=== PATIENT | female | born 1960 | race Caucasian/White ===

== ENCOUNTER 2019-03-20 10:29 | Emergency (ER) | payer BC ==
[2019-03-20] MEDS ORDERED: Sodium Chloride 0.9% 1,000 ML IV ONE ×2 (10:51→12:25)
[2019-03-20] MEDS ORDERED: Ondansetron 4 MG/2 ML SDV IVPUSH ONE ×2 (10:51→13:23)
[2019-03-20 11:20] LABS: CHLORIDE,CL 99 mmol/L (98-107); SODIUM,NA 134 mmol/L (136-145)
[2019-03-20] MEDS ORDERED: Morphine 2 MG/ML Syringe IVPUSH ONE ×2 (11:23→16:01)
[2019-03-20] MEDS: Sodium Chloride 0.9% 10 ML Syringe FLUSH PRN ×5 (11:29→16:37)
[2019-03-20] MEDS ORDERED: Promethazine 25 MG/ML SDV IM ONE ×2 (11:44→16:15)
[2019-03-20] MEDS ORDERED: Iopamidol 612 MG/ML 100 ML Bottle IVPUSH ONE (13:29)
[2019-03-20] MEDS ORDERED: Diatrizoate Meglumine/Diatrizoate Sodium 37% 30 ML Bottle PO ONE (13:29)
[2019-03-20 13:45] LABS: BARBITURATE SCREEN,URINE NEGATIVE (NEGATIVE); BENZODIAZEPINES SCREEN,URINE NEGATIVE (NEGATIVE); TCA SCREEN,URINE NEGATIVE (NEGATIVE); THC SCREEN,URINE 50 NG/ML NEGATIVE (NEGATIVE)
--- NOTE | 2019-03-20 13:54 | EDM.PDOC ---
ED HPI GENERAL MEDICAL PROBLEM - General Chief Complaint: Abdominal Pain Stated Complaint: abdominal pain, nausea, vomiting Time Seen by Provider: 03/20/19 11:00 Source of Information: Reports: Patient, RN History Limitations: Reports: No Limitations - History of Present Illness INITIAL COMMENTS - FREE TEXT/NARRATIVE: Patient comes to ER with complaint of abdominal pain, emesis/diarrhea that started around 2:30 this morning. Some chills. No specific fever. No specific sick contacts. Has not taken any medication for symptoms. abdominal pain Pain Score (Numeric/FACES): 8 back pain Pain Score (Numeric/FACES): 8 - Related Data Allergies Allergy/AdvReac Type Severity Reaction Status Date / Time No Known Drug Allergies Allergy Other Verified 03/20/19 10:34 Home Meds: Home Meds Aspirin [Halfprin] 81 mg PO DAILY 03/20/19 [History] Fish Oil/[place]-3 Fatty Acids [Fish Oil 1,000 MG] 1 cap PO DAILY 03/20/19 [ History] Levothyroxine 150 mcg PO ACBREAKFAST 03/20/19 [History] Lisinopril [Prinivil] 20 mg PO DAILY 03/20/19 [History] NIFEdipine [Nifedipine ER] 1 tab PO DAILY 03/20/19 [History] Propranolol HCl [Inderal Xl] 1 cap PO DAILY 03/20/19 [History] Past Medical History Cardiovascular History: Reports: Hypertension Psychiatric History: Reports: Addiction (ETOH abuse) Endocrine/Metabolic History: Reports: Diabetes, Type II, Hypothyroidism, Obesity /BMI 30+ - Past Surgical History Female Surgical History: Reports: Hysterectomy, Salpingo-Oophorectomy Social & Family History - Tobacco Use Smoking Status *Q: Current Every Day Smoker Years of Tobacco use: 0 Packs/Tins Daily: 1.5 Used Tobacco, but Quit: No Second Hand Smoke Exposure: Yes - Caffeine Use Caffeine Use: Reports: Coffee - Alcohol Use Days Per Week of Alcohol Use: 7 Number of Drinks Per Day: 8 Total Drinks Per Week: 56 - Recreational Drug Use Recreational Drug Use: No ED ROS GENERAL - Review of Systems Review Of Systems: See Below Constitutional: Reports: Chills, Malaise, Weakness, Decreased Appetite. Denies : Fever, Night Sweats, Diaphoresis HEENT: Denies: Ear Pain, Rhinitis, Sinus Problem, Throat Pain, Vision Change Respiratory: Reports: No Symptoms. Denies: Cough Cardiovascular: Reports: No Symptoms. Denies: Chest Pain GI/Abdominal: Reports: Abdominal Pain (generalized abdominal pain, worse just above umbilicus, radiates to back), Diarrhea, Decreased Appetite, Vomiting, Other (Patient reports that she has itching around rectum and noticed some blood when she was scratching around the area, reports she has hemorrhoids. ). Denies: Black Stool, Difficulty Swallowing, Distension : Reports: No Symptoms. Denies: Frequency, Pain Musculoskeletal: Reports: No Symptoms Skin: Reports: No Symptoms Neurological: Reports: No Symptoms. Denies: Headache Psychiatric: Reports: No Symptoms Hematologic/Lymphatic: Reports: No Symptoms ED EXAM, GENERAL - Physical Exam Exam: See Below Exam Limited By: No Limitations General Appearance: Alert, Moderate Distress, Obese Eye Exam: Bilateral Eye: EOMI, PERRL Ears: Normal External Exam Nose: No: Nasal Deformity, Nasal Swelling, Nasal Drainage Throat/Mouth: Normal Lips, Normal Voice, No Airway Compromise Head: Atraumatic, Normocephalic Neck: Normal Inspection, Supple, Non-Tender, Full Range of Motion Respiratory/Chest: No Respiratory Distress, Lungs Clear, Normal Breath Sounds, No Accessory Muscle Use, Chest Non-Tender Cardiovascular: Normal Peripheral Pulses, Regular Rate, Rhythm, No Murmur GI/Abdominal: Tender (generalized tenderness, worse periumbilically/above umbilicus and RLQ), Abnormal Bowel Sounds (decreased throughout). No: Distended , Guarding, Rigid, Rebound, Mass (Female) Exam: Deferred Rectal (Female) Exam: Deferred Back Exam: No: CVA Tenderness (L), CVA Tenderness (R), Paraspinal Tenderness, Vertebral Tenderness Extremities: Non-Tender, Normal Capillary Refill, Pedal Edema Neurological: Alert, Oriented, Normal Cognition, No Motor/Sensory Deficits Psychiatric: Anxious Skin Exam: Warm, Dry, Intact, Normal Color Course - Vital Signs Last Recorded V/S: Last Vital Signs Temp 36.7 C 03/20/19 10:30 Pulse 74 03/20/19 10:30 Resp 20 03/20/19 10:30 BP 135/62 03/20/19 10:30 Pulse Ox 95 03/20/19 10:30 - Orders/Labs/Meds Orders: Active Orders 24 hr Category Date Time Status Peripheral IV Care [RC] . DIRECTED Care 03/20/19 11:28 Active NPO [Nothing Per Oral Diet] [DIET] Diet 03/20/19 Dinner Ordered Abdomen Pelvis w Cont [CT] Stat Exams 03/20/19 13:23 Ordered Abdomen Series w Chest 1V [CR] Urgent Exams 03/20/19 11:43 Taken OCCULT BLOOD DIAGNOSTIC [OP] Stat Lab 03/20/19 13:54 Ordered Morphine Med 03/20/19 16:01 Once 2 mg IVPUSH ONETIME ONE Sodium Chloride 0.9% [Normal Saline] 500 ml Med 03/20/19 16:15 Ordered IV ASDIRECTED Sodium Chloride 0.9% [Saline Flush] Med 03/20/19 11:28 Active 10 ml FLUSH ASDIRECTED PRN Peripheral IV Insertion Adult [OM.PC] Routine Oth 03/20/19 10:50 Ordered Medication Orders Sodium Chloride (Saline Flush) 10 ml FLUSH ASDIRECTED PRN PRN Reason: Keep Vein Open Last Admin: 03/20/19 14:39 Dose: 10 ml Admin: 03/20/19 13:33 Dose: 10 ml Admin: 03/20/19 12:37 Dose: 10 ml Admin: 03/20/19 11:29 Dose: 10 ml Labs: Laboratory Tests 03/20/19 03/20/19 03/20/19 Range/Units 10:52 10:55 10:55 WBC 12.1 H (4.0-10.2) K/uL RBC 4.04 (3.77-5.09) M/uL Hgb 14.4 (11.7-15.5) g/dL Hct 42.1 (34.0-46.0) % MCV 104.2 H D (84.0-98.0) fL MCH 35.6 H (28.2-33.3) pg MCHC 34.2 (31.7-36.0) g/dL RDW 12.2 (11.2-14.1) % Plt Count 220 (150-350) K/uL Neut % (Auto) 77.1 (45.0-80.0) % Lymph % (Auto) 19.1 (10.0-50.0) % [place] % (Auto) 3.3 (2.0-14.0) % Eos % (Auto) 0.3 (0.0-5.0) % Baso % (Auto) 0.2 (0.0-2.0) % Neut # (Auto) 9.30 H (1.40-7.00) K/uL Lymph # (Auto) 2.31 (0.50-3.50) K/uL [place] # (Auto) 0.40 (0.00-1.00) K/uL Eos # (Auto) 0.04 (0.00-0.50) K/uL Baso # (Auto) 0.02 (0.00-0.20) K/uL Sodium 134 L (136-145) mmol/L Potassium 4.1 (3.5-5.1) mmol/L Chloride 99 (98-107) mmol/L Carbon Dioxide 24.3 (21.0-32.0) mmol/L BUN 6 L (7-18) mg/dL Creatinine 0.54 (0.51-1.17) mg/dL Est Cr Clr Drug Dosing TNP Estimated GFR (MDRD) > 60 mL/min Glucose 181 H (74-106) mg/dL Hemoglobin A1c (4.3-5.7) % Lactic Acid 2.1 H (0.4-2.0) mmol/L Calcium 9.2 (8.5-10.1) mg/dL Magnesium 1.6 L (1.8-2.4) mg/dL Total Bilirubin 0.6 (0.2-1.0) mg/dL AST 31 (15-37) U/L ALT 40 (12-78) U/L Alkaline Phosphatase 141 H (46-116) IU/L Total Protein 8.1 (6.4-8.2) g/dL Albumin 3.6 (3.4-5.0) g/dL Amylase 45 (25-115) U/L Specimen Type Urine Color Urine Appearance Urine pH (5.0-9.0) Ur Specific [place] (1.005-1.030) Urine Protein (NEGATIVE) mg/dL Urine Glucose (UA) (NEGATIVE) mg/dL Urine Ketones (NEGATIVE) mg/dL Urine Occult Blood (NEGATIVE) Urine Nitrite (NEGATIVE) Urine Bilirubin (NEGATIVE) Urine Urobilinogen (0.2-1.0) E.U./dL Ur Leukocyte Esterase (NEGATIVE) Urine RBC /HPF Urine WBC /HPF Ur Epithelial Cells /LPF Urine Bacteria (NONE TO FEW) /HPF Urine Opiates Screen (NEGATIVE) Urine Methadone Screen (NEGATIVE) U Acetaminophen Screen (NEGATIVE) Ur Barbiturates Screen (NEGATIVE) Ur Tricyclics Screen (NEGATIVE) Ur Phencyclidine Scrn (NEGATIVE) Ur Amphetamine Screen (NEGATIVE) U Methamphetamines Scrn (NEGATIVE) U Benzodiazepines Scrn (NEGATIVE) U Cocaine Metab Screen (NEGATIVE) U Marijuana (THC) Screen (NEGATIVE) Ethyl Alcohol (0.000-0.080) g/dL 03/20/19 03/20/19 03/20/19 Range/Units 10:55 12:03 13:30 WBC (4.0-10.2) K/uL RBC (3.77-5.09) M/uL Hgb (11.7-15.5) g/dL Hct (34.0-46.0) % MCV (84.0-98.0) fL MCH (28.2-33.3) pg MCHC (31.7-36.0) g/dL RDW (11.2-14.1) % Plt Count (150-350) K/uL Neut % (Auto) (45.0-80.0) % Lymph % (Auto) (10.0-50.0) % [place] % (Auto) (2.0-14.0) % Eos % (Auto) (0.0-5.0) % Baso % (Auto) (0.0-2.0) % Neut # (Auto) (1.40-7.00) K/uL Lymph # (Auto) (0.50-3.50) K/uL [place] # (Auto) (0.00-1.00) K/uL Eos # (Auto) (0.00-0.50) K/uL Baso # (Auto) (0.00-0.20) K/uL Sodium (136-145) mmol/L Potassium (3.5-5.1) mmol/L Chloride (98-107) mmol/L Carbon Dioxide (21.0-32.0) mmol/L BUN (7-18) mg/dL Creatinine (0.51-1.17) mg/dL Est Cr Clr Drug Dosing Estimated GFR (MDRD) mL/min Glucose (74-106) mg/dL Hemoglobin A1c 5.5 (4.3-5.7) % Lactic Acid (0.4-2.0) mmol/L Calcium (8.5-10.1) mg/dL Magnesium (1.8-2.4) mg/dL Total Bilirubin (0.2-1.0) mg/dL AST (15-37) U/L ALT (12-78) U/L Alkaline Phosphatase (46-116) IU/L Total Protein (6.4-8.2) g/dL Albumin (3.4-5.0) g/dL Amylase (25-115) U/L Specimen Type Urine Color Urine Appearance Urine pH (5.0-9.0) Ur Specific [place] (1.005-1.030) Urine Protein (NEGATIVE) mg/dL Urine Glucose (UA) (NEGATIVE) mg/dL Urine Ketones (NEGATIVE) mg/dL Urine Occult Blood (NEGATIVE) Urine Nitrite (NEGATIVE) Urine Bilirubin (NEGATIVE) Urine Urobilinogen (0.2-1.0) E.U./dL Ur Leukocyte Esterase (NEGATIVE) Urine RBC /HPF Urine WBC /HPF Ur Epithelial Cells /LPF Urine Bacteria (NONE TO FEW) /HPF Urine Opiates Screen Positive H (NEGATIVE) Urine Methadone Screen Negative (NEGATIVE) U Acetaminophen Screen Negative (NEGATIVE) Ur Barbiturates Screen Negative (NEGATIVE) Ur Tricyclics Screen Negative (NEGATIVE) Ur Phencyclidine Scrn Negative (NEGATIVE) Ur Amphetamine Screen Negative (NEGATIVE) U Methamphetamines Scrn Negative (NEGATIVE) U Benzodiazepines Scrn Negative (NEGATIVE) U Cocaine Metab Screen Negative (NEGATIVE) U Marijuana (THC) Screen Negative (NEGATIVE) Ethyl Alcohol 0.000 (0.000-0.080) g/dL 03/20/19 Range/Units 13:30 WBC (4.0-10.2) K/uL RBC (3.77-5.09) M/uL Hgb (11.7-15.5) g/dL Hct (34.0-46.0) % MCV (84.0-98.0) fL MCH (28.2-33.3) pg MCHC (31.7-36.0) g/dL RDW (11.2-14.1) % Plt Count (150-350) K/uL Neut % (Auto) (45.0-80.0) % Lymph % (Auto) (10.0-50.0) % [place] % (Auto) (2.0-14.0) % Eos % (Auto) (0.0-5.0) % Baso % (Auto) (0.0-2.0) % Neut # (Auto) (1.40-7.00) K/uL Lymph # (Auto) (0.50-3.50) K/uL [place] # (Auto) (0.00-1.00) K/uL Eos # (Auto) (0.00-0.50) K/uL Baso # (Auto) (0.00-0.20) K/uL Sodium (136-145) mmol/L Potassium (3.5-5.1) mmol/L Chloride (98-107) mmol/L Carbon Dioxide (21.0-32.0) mmol/L BUN (7-18) mg/dL Creatinine (0.51-1.17) mg/dL Est Cr Clr Drug Dosing Estimated GFR (MDRD) mL/min Glucose (74-106) mg/dL Hemoglobin A1c (4.3-5.7) % Lactic Acid (0.4-2.0) mmol/L Calcium (8.5-10.1) mg/dL Magnesium (1.8-2.4) mg/dL Total Bilirubin (0.2-1.0) mg/dL AST (15-37) U/L ALT (12-78) U/L Alkaline Phosphatase (46-116) IU/L Total Protein (6.4-8.2) g/dL Albumin (3.4-5.0) g/dL Amylase (25-115) U/L Specimen Type Urinvoid Urine Color Dark yellow Urine Appearance Clear Urine pH 7.5 (5.0-9.0) Ur Specific [place] 1.020 (1.005-1.030) Urine Protein Negative (NEGATIVE) mg/dL Urine Glucose (UA) Negative (NEGATIVE) mg/dL Urine Ketones Negative (NEGATIVE) mg/dL Urine Occult Blood Trace-intact H (NEGATIVE) Urine Nitrite Negative (NEGATIVE) Urine Bilirubin Negative (NEGATIVE) Urine Urobilinogen 0.2 (0.2-1.0) E.U./dL Ur Leukocyte Esterase Negative (NEGATIVE) Urine RBC 0-5 /HPF Urine WBC 0-5 /HPF Ur Epithelial Cells Few /LPF Urine Bacteria Not seen (NONE TO FEW) /HPF Urine Opiates Screen (NEGATIVE) Urine Methadone Screen (NEGATIVE) U Acetaminophen Screen (NEGATIVE) Ur Barbiturates Screen (NEGATIVE) Ur Tricyclics Screen (NEGATIVE) Ur Phencyclidine Scrn (NEGATIVE) Ur Amphetamine Screen (NEGATIVE) U Methamphetamines Scrn (NEGATIVE) U Benzodiazepines Scrn (NEGATIVE) U Cocaine Metab Screen (NEGATIVE) U Marijuana (THC) Screen (NEGATIVE) Ethyl Alcohol (0.000-0.080) g/dL Meds: Medications Generic Name Dose Route Start Last Admin Trade Name Freq PRN Reason Stop Dose Admin Sodium Chloride 10 ml 03/20/19 11:28 03/20/19 14:39 Saline Flush FLUSH 10 ml ASDIRECTED PRN Administration Keep Vein Open Discontinued Medications Generic Name Dose Route Start Last Admin Trade Name Freq PRN Reason Stop Dose Admin Diatrizoate Meglum/Diatrizoate Sod 30 ml 03/20/19 13:29 03/20/19 15:20 Gastrografin 37% PO 03/20/19 13:30 30 ml ONETIME ONE Administration Sodium Chloride 1,000 mls @ 999 mls/hr 03/20/19 10:51 03/20/19 10:57 Normal Saline IV 03/20/19 11:51 999 mls/hr .BOLUS ONE Administration Sodium Chloride 1,000 mls @ 999 mls/hr 03/20/19 12:25 03/20/19 12:37 Normal Saline IV 03/20/19 13:25 999 mls/hr .BOLUS ONE Administration Magnesium Sulfate/Dextrose 1 100 mls @ 100 mls/hr 03/20/19 13:47 03/20/19 14: 39 gm/ Premix IV 03/20/19 14:46 100 mls/hr ONETIME ONE Administration Iopamidol 100 ml 03/20/19 13:29 03/20/19 15:20 Isovue-300 (61%) IVPUSH 03/20/19 13:30 100 ml ONETIME ONE Administration Morphine Sulfate 2 mg 03/20/19 11:23 03/20/19 11:27 Morphine IVPUSH 03/20/19 11:24 2 mg ONETIME ONE Administration Ondansetron HCl 4 mg 03/20/19 10:51 03/20/19 11:00 Zofran IVPUSH 03/20/19 10:52 4 mg ONETIME ONE Administration Ondansetron HCl 4 mg 03/20/19 13:23 03/20/19 13:32 Zofran IVPUSH 03/20/19 13:24 4 mg ONETIME ONE Administration Promethazine HCl 25 mg 03/20/19 11:44 03/20/19 11:49 Phenergan IM 03/20/19 11:45 25 mg ONETIME ONE Administration - Re-Assessments/Exams Free Text/Narrative Re-Assessment/Exam: Labs drawn. Patient given pain and anti-nausea meds. IV fluids. Chest/ abdominal xrays did not show obvious acute abnormality. WBC mildly elevated. Lactic acid mildly elevated. Low Mag noted. Elevated blood sugar. A1C requested. Improved pain with MS. No further emesis noted at this time. No bowel movements since arrival. Occult blood screen requested. Given severity of pain, increase in WBC/lactic acid, a CT of abdomen and pelvis requested for further evaluation. 03/20/19 16:04 CT + for uncomplicated appendicitis Patient accepted for transfer to [place] by Patient continues to be much more comfortable s/p Zofran/Phenergan/MS Departure - Departure Time of Disposition: 16:30 Disposition: DC/Tfer to Acute Hospital 02 Condition: Good Clinical Impression: Hypomagnesemia Appendicitis Qualifiers: Appendicitis type: acute appendicitis Acute appendicitis type: unspecified acute appendicitis type Qualified Code(s): K35.80 - Unspecified acute appendicitis - Discharge Information *PRESCRIPTION DRUG MONITORING PROGRAM REVIEWED*: Not Applicable *COPY OF PRESCRIPTION DRUG MONITORING REPORT IN PATIENT KETTY: Not Applicable Referrals: Nelly Montoya PA [Primary Care Provider] - Forms: ED Department Discharge - My Orders Last 24 Hours: My Active Orders 03/20/19 10:50 Peripheral IV Insertion Adult [OM.PC] Routine 03/20/19 11:28 Peripheral IV Care [RC] . DIRECTED Sodium Chloride 0.9% [Saline Flush] 10 ml FLUSH ASDIRECTED PRN 03/20/19 11:43 Abdomen Series w Chest 1V [CR] Urgent 03/20/19 13:23 Abdomen Pelvis w Cont [CT] Stat 03/20/19 13:54 OCCULT BLOOD DIAGNOSTIC [OP] Stat 03/20/19 16:01 Morphine 2 mg IVPUSH ONETIME ONE 03/20/19 16:15 Sodium Chloride 0.9% [Normal Saline] 500 ml IV ASDIRECTED 03/20/19 Dinner NPO [Nothing Per Oral Diet] [DIET] - Assessment/Plan Last 24 Hours: My Active Orders 03/20/19 10:50 Peripheral IV Insertion Adult [OM.PC] Routine 03/20/19 11:28 Peripheral IV Care [RC] . DIRECTED Sodium Chloride 0.9% [Saline Flush] 10 ml FLUSH ASDIRECTED PRN 03/20/19 11:43 Abdomen Series w Chest 1V [CR] Urgent 03/20/19 13:23 Abdomen Pelvis w Cont [CT] Stat 03/20/19 13:54 OCCULT BLOOD DIAGNOSTIC [OP] Stat 03/20/19 16:01 Morphine 2 mg IVPUSH ONETIME ONE 03/20/19 16:15 Sodium Chloride 0.9% [Normal Saline] 500 ml IV ASDIRECTED 03/20/19 Dinner NPO [Nothing Per Oral Diet] [DIET]
[2019-03-20 14:13] LABS: HEMOGLOBIN A1C 5.5 % (4.3-5.7)
[2019-03-20] MEDS ORDERED: Sodium Chloride 0.9% 500 ML IV SCH (16:15)
== END 2019-03-20 16:45 ==
LOC: LL.ED 10:29
DX: K35.80 Unspecified acute appendicitis (principal); E83.42 Hypomagnesemia; I10 Essential (primary) hypertension; E03.9 Hypothyroidism, unspecified; E11.9 Type 2 diabetes mellitus without complications; E66.9 Obesity, unspecified; F17.210 Nicotine dependence, cigarettes, uncomplicated; Z79.82 Long term (current) use of aspirin; Z79.899 Other long term (current) drug therapy; Z79.890 Hormone replacement therapy
CPT/HCPCS: 36415; 74022; 74177; 80053; 80305-QW; 81001; 82150; 83036; 83605; 83735; 85025; 87804; 96361; 96365; 96372; 96375; 96376; 99285-25; G0480; J2270; J2405; J2550; J3475; J7030; Q9963; Q9967

== ENCOUNTER 2020-10-04 21:13 | Observation (INO) | payer BC ==
[~2020-10-04 21:13] MED LIST: Temazepam 15 MG Cap PO PRN
[2020-10-04] MEDS ORDERED: Ondansetron 4 MG/2 ML SDV IVPUSH ONE (21:38)
[2020-10-04] MEDS ORDERED: Famotidine 20 MG/2 ML SDV IVPUSH ONE (21:38)
[2020-10-04] MEDS ORDERED: Pantoprazole 40 MG Vial IVPUSH ONE (21:38)
[2020-10-04] MEDS ORDERED: Lactated Ringers 1,000 ML IV ONE (21:38)
--- NOTE | 2020-10-04 21:38 | EDM.PDOC ---
ED HPI GENERAL MEDICAL PROBLEM - General Chief Complaint: Fever Stated Complaint: HEADACHE, FEVER, N/V/D Time Seen by Provider: 10/04/20 21:30 Source of Information: Reports: Patient, Old Records ([facility] chart/EMR) History Limitations: Reports: No Limitations - History of Present Illness INITIAL COMMENTS - FREE TEXT/NARRATIVE: The patient was brought to the emergency room via private automobile by her [id number] for evaluation of recurrent nausea and emesis, which started at about 6 PM this afternoon after she took 1 dose of Augmentin at about 4:30 PM for sinusitis, /10 sinus headache, and possible right-sided otitis media after a telemedicine visit with her regular provider at [facility] in [place] earlier today. She has had recurrent emesis and dry heaves about every 30 minutes since that time. Her symptoms initially started about 2 days ago with exception of the nausea and emesis, which started this evening as above. She denies any known exposure to infection, food poisoning, etc. No recent history of abdominal pain, heartburn, diarrhea, melena, gross hematochezia, or any food intolerance, including fatty foods, etc., with normal bowel movement earlier today. She denies any gross hematuria, colic, or the UTI symptoms. The patient denies any chest pain/pressure, heart flutter, dizziness, orthostasis, orthopnea, diaphoresis, paresthesias, recent decreased exercise tolerance, or any other anginal-type symptoms. The patient also denies any recent fever, wheezing, dyspnea, etc. with stable nonproductive cough likely secondary to her COPD. Onset: Gradual Onset Date: 10/02/20 Duration: Constant, Getting Worse Location: Reports: Head. Denies: Face, Neck, Chest, Abdomen, Back, Upper Extremity, Left, Upper Extremity, Right, Radiates to Quality: Reports: Same as Previous Episode, Throbbing Severity: Mild Improves with: Reports: None Worsens with: Reports: None Context: Reports: Other (As above). Denies: Sick Contact, Trauma Associated Symptoms: Reports: Cough (As above), Headaches, Nausea/Vomiting. Denies: Confusion, Chest Pain, cough w sputum, Diaphoresis, Fever/Chills (Temperature not measured), Loss of Appetite, Malaise, Rash, Seizure, Shortness of Breath, Syncope, Weakness Treatments SPRINKLER HELPER: Reports: Other Medication(s) (As above) Bilateral Frontal Headache Pain Score (Numeric/FACES): 4 - Related Data Allergies Allergy/AdvReac Type Severity Reaction Status Date / Time No Known Drug Allergies Allergy Other Verified 10/04/20 21:15 Home Meds: Home Meds Aspirin [Halfprin] 81 mg PO DAILY 03/20/19 [History] Fish Oil/[place]-3 Fatty Acids [Fish Oil 1,000 MG] 1 cap PO DAILY 03/20/19 [History] Levothyroxine 150 mcg PO ACBREAKFAST 03/20/19 [History] Propranolol HCl [Inderal Xl] 1 cap PO DAILY 03/20/19 [History] lisinopriL [Prinivil] 40 mg PO DAILY 03/20/19 [History] Cyanocobalamin (Vitamin B-12) [B-12] 500 mcg PO DAILY 10/04/20 [History] Docusate Sodium [Colace] 2 cap PO BID 10/04/20 [History] Famotidine 20 mg PO BID 10/04/20 [History] Fish Oil/[place]-3 Fatty Acids [Fish Oil 1,000 MG] 1 gm PO DAILY 10/04/20 [History] Folic Acid 0.8 mg PO DAILY 10/04/20 [History] Loratadine 10 mg PO DAILY 10/04/20 [History] Meloxicam 15 mg PO DAILY 10/04/20 [History] Past Medical History HEENT History: Reports: Allergic Rhinitis, Impaired Vision, Sinusitis, Other (See Below). Denies: Cataract, Glaucoma, Hard of Hearing, Macular Degeneration, Otitis Media, Retinal Detachment Other HEENT History: Patient wears glasses. Cardiovascular History: Reports: CAD, Hypertension, Other (See Below). Denies: Afib, Aneurysm, Arrhythmia, Blood Clots/VTE/DVT, Cardiomyopathy, Heart Failure, Heart Murmur, High Cholesterol, NE, PVD, Syncope Other Cardiovascular History: Possible coronary artery disease by chest x-ray. The patient does not know her cholesterol status with history of fatty liver as below. Respiratory History: Reports: Bronchitis, Recurrent, COPD, Intubation, Previous, Pneumonia, Recurrent, Pulmonary Fibrosis. Denies: Asthma, Intubation, Difficult, PE, Pneumothorax, Sleep Apnea, TB Gastrointestinal History: Reports: Diverticulosis, Fatty Liver, GERD, Other (See Below). Denies: Bowel Obstruction, Celiac Disease, Cholelithiasis, Chronic Constipation, Chronic Diarrhea, Gastritis, Hepatitis, Inflammatory Bowel Disease, Irritable Bowel Syndrome, Jaundice, Pancreatitis, PUD Other Gastrointestinal History: LFTs elevation either secondary to fatty liver or alcohol use. Genitourinary History: Reports: Renal Calculus, Urinary Incontinence, Other (See Below). Denies: Acute Renal Failure, Chronic Renal Insuffiency, STD, UTI, Recurrent Other Genitourinary History: Left-sided nephrolithiasis with benign right renal cyst by abdominal ultrasound on 11/11/2016. FILES SUPERVISOR History: Reports: Dysfunctional Uterine Bleeding, Fibroids, Therapeutic : 4 Para: 3 LMP (Approximate): Other (See Below) Other FILES SUPERVISOR History: Menopause at about age 44 with hysterectomy as below. Full term without complications during pregnancies or deliveries, although C-sections x3 required secondary to small pelvis. Elective SAB during first trimester. Musculoskeletal History: Reports: Arthritis, Back Pain, Chronic, Osteoarthritis, Other (See Below). 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 Appendicitis on 03/20/2019. Neurological History: Reports: Headaches, Chronic, Other (See Below). Denies: Cerebral Aneurysms, Concussion, CVA, Head Trauma, Migraines, MS, Neuropathy, Peripheral, Parkinson's, Seizure, TIA, Vertigo Other Neuro History: Sinus headaches. Psychiatric History: Reports: Addiction, Anxiety, Depression, Other (See Below). Denies: Abuse, Victim of, ADD, ADHD, Psych Hospitalization(s), Psychosis, PTSD, Suicide Attempt Other Psychiatric History: EtOH abuse. Endocrine/Metabolic History: Reports: Diabetes, Type II, Hypomagnesemia, Hypothyroidism, Obesity/BMI 30+, Other (See Below). Denies: Diabetes, Gestational, Diabetes, Type I, Diabetes Mellitus, Type 3c Other Endocrine/Metabolic History: Hypoalbuminemia. Hyponatremia. Hematologic History: Reports: Anemia, Other (See Below). Denies: Blood Transfusion(s), Iron Deficiency Other Hematologic History: Anemia as a child. Macrocytosis possibly secondary to alcohol abuse. Immunologic History: Denies: AIDS, HIV, SLE Oncologic (Cancer) History: Reports: None. Denies: Basal Cell Carcinoma, Cervix, Colon, Hodgkin's Lymphoma, Leukemia, Malignant Melanoma, Non-Hodgkin's Lymphoma, Ovarian, Squamous Cell Carcinoma, Uterine Dermatologic History: Reports: Eczema. Denies: Psoriasis - Infectious Disease History Infectious Disease History: Reports: Chicken Pox. Denies: C-Difficile, Measles, Meningitis, Mononucleosis, MRSA, Mumps, Novel Coronavirus, Pertussis (Whooping Cough), Rheumatic Fever, Rubella, Scarlet Fever, Shingles, TB, VRE - Past Surgical History Head Surgeries/Procedures: Reports: None HEENT Surgical History: Reports: Oral Surgery, Other (See Below). Denies: Adenoidectomy, Cataract Surgery, Eye Surgery, Laser Surgery, LASIK, Myringotomy w Tube(s), Naso-Sinus Surgery, Tonsillectomy Other HEENT Surgeries/Procedures: Multiple teeth extractions. Cardiovascular Surgical History: Reports: None. Denies: Varicose Respiratory Surgical History: Denies: Thoracentesis GI Surgical History: Reports: Appendectomy, Other (See Below). Denies: Cholecystectomy, Colonoscopy, EGD, Hernia, Abdominal, Hernia, Inguinal, Hernia Repair/Other Other GI Surgeries/Procedures: Appendectomy on 03/20/2019. Female Surgical History: Reports: D&C, Dilitation & Evacuation, Hysterectomy, Salpingo-Oophorectomy, Other (See Below). Denies: Breast Biopsy, Tubal Ligation Other Female Surgeries/Procedures: Complete hysterectomy, including bilateral salpingo-oophorectomy secondary to uterine fibroids at about age 49. Bilateral tubal ligation at age 26. Intentional/elective SAB during first trimester as above. Endocrine Surgical History: Reports: None. Denies: Thyroid Biopsy Neurological Surgical History: Reports: None. Denies: C-Spine, Discectomy, Laminectomy, Lumbar Spine, Sacral Spine, Spinal Fusion, Thoracic Spine, Ve rtebroplasty Musculoskeletal Surgical History: Reports: None. Denies: Arthroscopic Procedure, Carpal Tunnel, Ganglion Cyst, Joint Replacement, ORIF, Shoulder Surgery Oncologic Surgical History: Reports: None Dermatological Surgical History: Reports: None - Past Imaging History Past Imaging History: Reports: CAT Scan (CT of the abdomen and pelvis with contrast positive for appendicitis on 03/20/2019. CT of the chest on 02/27/2010. CT of the head on 09/19/2008.), Mammogram (Last on 01/12/2020.), Ultrasound (Pelvic on 04/30/2017 and 11/04/2016. Complete abdominal ultrasound on 11/11/2016, 01/10/2014 and 10/09/2010.) Social & Family History - Family History HEENT: Reports: None. Denies: Glaucoma, Macular Degeneration, Retinal Detachment Cardiac: Reports: CAD, NE, Other (See Below). Denies: Afib, Aneurysm, Arrhythmia, Blood Clots/VTE/DVT, Cardiomyopathy, Heart Failure, Heart Murmur, Heart Valve Replacement, High Cholesterol, Hypertension, Syncope Other Cardiac Family History: Maternal grandmother with recurrent MIs fatal in her 60s. Respiratory: Reports: Sleep Apnea, Other (See Below). Denies: Asthma, COPD, PE, Pneumothorax Other Respiratory Family Hisory: Daughter with sleep apnea. GI: Reports: None. Denies: Celiac Disease, Cholelithiasis, Colon Polyps, GERD, GI bleed, Inflammatory Bowel Disease, Irritable Bowel Syndrome, PUD : Reports: None. Denies: Renal Calculus, Renal Disease/Insufficiency OBGYN: Reports: None. Denies: Endometriosis, Recurrent Spontaneous Musculoskeletal: Reports: None. Denies: Arthritis, Gout, RA, SLE Neurological: Reports: Alzheimers Disease, Dementia, Other (See Below). Denies: Cerebral Aneurysms, CVA, Migraines, MS, Parkinson's, Seizure, TIA Other Neurological Family History: Daughter with migraine headaches. Maternal grandfather with organic brain syndrome. Psychiatric: Reports: Anxiety, Depression, Psych Hospitalization(s), Suicide Attempt. Denies: Abuse, Victim of, ADD, ADHD, PTSD Other Psychiatric Family History: Father with history of alcohol abuse. Children x3 with anxiety and depression disorder. Daughter with history of suicide attempt requiring hospitalization. Endocrine/Metabolic: Reports: Diabetes, type II, Hypothyroidism, IDDM, Other (See Below). Denies: Diabetes, Type I Other Endocrine/Metabolic Family History: Maternal aunt with AODM. Mother with IDDM and hypothyroidism. Hematologic: Reports: None. Denies: SLE Immunologic: Reports: None. Denies: AIDS, HIV, SLE Dermatologic: Reports: None (Any skin conditions like eczema or psoriasis note). Denies: Eczema, Psoriasis Oncologic: Reports: Breast, Other (See Below) ( GI). Denies: Cervix, Colon, Hodgkin's Lymphoma, Leukemia, Non-Hodgkin's Lymphoma, Ovarian, Skin, Uterine Other Oncologic Family History: Mother with history of breast cancer at about age 60. - Tobacco Use Tobacco Use Status *Q: Current Every Day Tobacco User Tobacco Use Within Last Twelve Months: Cigarettes Years of Tobacco use: 45 Packs/Tins Daily: 1.5 Packs/Tins Daily Comment: Started smoking at age 15 with maximum use of 3 packs/day. Used Tobacco, but Quit: No Smoking Cessation Information Provided To Patient: Yes Second Hand Smoke Exposure: Yes Source of Second Hand Smoke Exposure: Daughter smokes Second Hand Smoke Education Provided: Yes - Caffeine Use Caffeine Use: Reports: Coffee (3 cups/day), Soda (Occasional). Denies: Energy Drinks, Tea - Alcohol Use Alcohol Use History: Yes Days Per Week of Alcohol Use: 7 Number of Drinks Per Day: 8 Number of Drinks Per Day Comment: Usually wine coolers. Total Drinks Per Week: 56 Date of Last Drink: 10/04/20 Alcohol Use in Last Twelve Months: Yes Alcohol Use Frequency: Binges - Recreational Drug Use Recreational Drug Use: Yes Drug Use in Last 12 Months: No Recreational Drug Type: Reports: Marijuana/Hashish (Experimental in high school). Denies: Amphetamines (Speed), Cocaine, Heroin, Inhalants (Glues, Solvents, Aerosols), LSD (Acid), Morphine, Oxycodone - Living Situation & Occupation Living situation: Reports: (1980, 3 children), with Family (, 1 daughter) Occupation: Other (Farm ) ED ROS GENERAL - Review of Systems Review Of Systems: Comprehensive ROS is negative, except as noted in HPI. ED EXAM, GI/ABD - Physical Exam Exam: See Below Exam Limited By: No Limitations General Appearance: Alert, WD/WN, No Apparent Distress, Anxious (Mild) Eyes: Bilateral: Normal Appearance (No vertigo or nystagmus. Patient is wearing glasses.), EOMI Ears: Normal External Exam, Normal Canal, Hearing Grossly Normal. No: Normal TMs (Mild injection of the right TM) Nose: Normal Inspection, Normal Mucosa, No Blood Throat/Mouth: Normal Inspection, Normal Lips, Normal Teeth (Multiple missing teeth with no evidence of infection), Normal Gums, Normal Oropharynx, Normal Voice, No Airway Compromise. No: Dysphagia, Inflammation, Perioral Cyanosis Head: Atraumatic, Normocephalic. No: Facial Swelling, Facial Tenderness, Sinus Tenderness Neck: Normal Inspection, Supple, Non-Tender, Full Range of Motion. No: Carotid Bruit, Lymphadenopathy (L), Lymphadenopathy (R), Thyromegaly Respiratory/Chest: No Respiratory Distress, Lungs Clear, Normal Breath Sounds, No Accessory Muscle Use, Chest Non-Tender. No: Pleural Rub, Retractions Cardiovascular: Normal Peripheral Pulses, Regular Rate, Rhythm, No Gallop, No JVD, No Murmur, No Rub. No: No Edema (Dependent edema as below), Gallop/S3, Gallop/S4, Friction Rub GI/Abdominal Exam: Normal Bowel Sounds, Soft, Non-Tender, No Organomegaly, No Distention, No Abnormal Bruit, No Mass, Other (Obese). No: Guarding (Female) Exam: Deferred Rectal (Female) Exam: Deferred Back Exam: Normal Inspection, Full Range of Motion. No: CVA Tenderness (L), CVA Tenderness (R), Muscle Spasm Extremities: Normal Range of Motion, Non-Tender, Normal Capillary Refill, Pedal Edema (+1 bilateral pedal/pretibial edema). No: Nuzhat's Sign Neurological: Alert, Oriented, CN II-XII Intact, Normal Cognition, Normal Gait, Normal Reflexes (Negative Babinski's), No Motor/Sensory Deficits Psychiatric: Anxious (Mild), Depressed Mood (Mild) Skin Exam: Warm, Dry, Intact, Normal Color, No Rash, Tattoo(s) (Multiple). No: Diaphoretic, Wound/Incision Course - Vital Signs Last Recorded V/S: Last Vital Signs Temp 37.4 C 10/04/20 22:30 Pulse 78 10/04/20 22:30 Resp 14 10/04/20 22:30 BP 144/76 H 10/04/20 22:30 Pulse Ox 98 10/04/20 22:30 Vital Signs - 24 hr 10/04/20 10/04/20 21:19 22:30 Temperature [ 38.1 C 37.4 C Temporal] Pulse, 80 78 Peripheral [ Left Pulse Oximetry] Respiratory 14 14 Rate Blood Pressure 165/100 H 144/76 H [Left Upper Arm ] O2 Sat by Pulse 98 98 Oximetry - Orders/Labs/Meds Orders: Active Orders 24 hr Category Date Time Status Peripheral IV Care [RC] . DIRECTED Care 10/04/20 21:38 Active Nothing Per Oral Diet [DIET] Diet 10/04/20 Breakfast Active Abdomen Series w Chest 1V [CR] Stat Exams 10/04/20 21:38 Stop Req Abdomen Series w Chest 1V [CR] Stat Exams 10/04/20 21:38 Taken CULTURE BLOOD [BC] Stat Lab 10/04/20 22:15 Received CULTURE BLOOD [BC] Stat Lab 10/04/20 22:35 Received CULTURE URINE [RM] Stat Lab 10/04/20 21:38 Ordered H PYLORI STOOL ANTIGEN [MREF] Urgent Lab 10/04/20 21:38 Ordered OCCULT BLOOD DIAGNOSTIC [OP] Stat Lab 10/04/20 21:38 Ordered Sodium Chloride 0.9% [Saline Flush] Med 10/04/20 21:38 Active 10 ml FLUSH ASDIRECTED PRN Blood Culture x2 Reflex Set [OM.PC] Urgent Oth 10/04/20 21:38 Ordered Isolation [COMM] Routine Oth 10/04/20 21:40 Active Obtain Past Medical Record [OM.PC] Urgent Oth 10/04/20 21:38 Active Peripheral IV Insertion Adult [OM.PC] Stat Oth 10/04/20 21:38 Ordered Resuscitation Status Stat Resus Stat 10/04/20 21:38 Ordered Medication Orders Sodium Chloride (Sodium Chloride 0.9% 10 Ml Syringe) 10 ml FLUSH ASDIRECTED PRN PRN Reason: Keep Vein Open Last Admin: 10/04/20 22:26 Dose: 10 ml Documented by: RAMONA Labs: Laboratory Tests 10/04/20 10/04/20 10/04/20 Range/Units 21:30 21:30 22:15 WBC (4.0-10.2) K/uL RBC (3.77-5.09) M/uL Hgb (11.7-15.5) g/dL Hct (34.0-46.0) % MCV (84.0-98.0) fL MCH (28.2-33.3) pg MCHC (31.7-36.0) g/dL RDW (11.2-14.1) % Plt Count (150-350) K/uL Neut % (Auto) (45.0-80.0) % Lymph % (Auto) (10.0-50.0) % [place] % (Auto) (2.0-14.0) % Eos % (Auto) (0.0-5.0) % Baso % (Auto) (0.0-2.0) % Neut # (Auto) (1.40-7.00) K/uL Lymph # (Auto) (0.50-3.50) K/uL [place] # (Auto) (0.00-1.00) K/uL Eos # (Auto) (0.00-0.50) K/uL Baso # (Auto) (0.00-0.20) K/uL PT (9.5-12.0) SEC INR Sodium (136-145) mmol/L Potassium (3.5-5.1) mmol/L Chloride (98-107) mmol/L Carbon Dioxide (21.0-32.0) mmol/L BUN (7-18) mg/dL Creatinine (0.51-1.17) mg/dL Est Cr Clr Drug Dosing mL/min Estimated GFR (MDRD) mL/min Glucose (70-99) mg/dL Lactic Acid (0.4-2.0) mmol/L Uric Acid (2.6-7.2) mg/dL Calcium (8.5-10.1) mg/dL Magnesium (1.8-2.4) mg/dL Total Bilirubin (0.2-1.0) mg/dL AST (15-37) U/L ALT (12-78) U/L Alkaline Phosphatase (46-116) IU/L Total Protein (6.4-8.2) g/dL Albumin (3.4-5.0) g/dL Amylase 35 (25-115) U/L Lipase (73-393) U/L Specimen Type Urine Color Urine Appearance Urine pH (5.0-9.0) Ur Specific [place] (1.005-1.030) Urine Protein (NEGATIVE) mg/dL Urine Glucose (UA) (NEGATIVE) mg/dL Urine Ketones (NEGATIVE) mg/dL Urine Occult Blood (NEGATIVE) Urine Nitrite (NEGATIVE) Urine Bilirubin (NEGATIVE) Urine Urobilinogen (0.2-1.0) E.U./dL Ur Leukocyte Esterase (NEGATIVE) Urine RBC /HPF Urine WBC /HPF Ur Epithelial Cells /LPF Urine Bacteria (NONE TO FEW) /HPF Urine Opiates Screen (NEGATIVE) Ur Buprenorphine Scrn (NEGATIVE) Ur Oxycodone Screen (NEGATIVE) Ur EDDP (Meth Metab) (NEGATIVE) Ur Barbiturates Screen (NEGATIVE) Ur Tricyclics Screen (NEGATIVE) Ur Amphetamine Screen (NEGATIVE) U Methamphetamines Scrn (NEGATIVE) Urine MDMA Screen (NEGATIVE) U Benzodiazepines Scrn (NEGATIVE) U Cocaine Metab Screen (NEGATIVE) U Marijuana (THC) Screen (NEGATIVE) Ethyl Alcohol (0.000-0.080) g/dL SARS-CoV-2 RNA (JOZEF) Negative (NEGATIVE) SARS-CoV-2 Ag (Rapid) Negative (NEGATIVE) 10/04/20 10/04/20 10/04/20 Range/Units 22:15 22:15 22:15 WBC 13.0 H (4.0-10.2) K/uL RBC 4.26 (3.77-5.09) M/uL Hgb 15.2 (11.7-15.5) g/dL Hct 43.7 (34.0-46.0) % MCV 102.6 H (84.0-98.0) fL MCH 35.7 H (28.2-33.3) pg MCHC 34.8 (31.7-36.0) g/dL RDW 12.4 (11.2-14.1) % Plt Count 213 (150-350) K/uL Neut % (Auto) 80.2 H (45.0-80.0) % Lymph % (Auto) 11.4 (10.0-50.0) % [place] % (Auto) 6.9 (2.0-14.0) % Eos % (Auto) 1.3 (0.0-5.0) % Baso % (Auto) 0.2 (0.0-2.0) % Neut # (Auto) 10.43 H (1.40-7.00) K/uL Lymph # (Auto) 1.48 (0.50-3.50) K/uL [place] # (Auto) 0.89 (0.00-1.00) K/uL Eos # (Auto) 0.17 (0.00-0.50) K/uL Baso # (Auto) 0.02 (0.00-0.20) K/uL PT 9.9 (9.5-12.0) SEC INR 1.0 Sodium 133 L (136-145) mmol/L Potassium 4.3 (3.5-5.1) mmol/L Chloride 97 L (98-107) mmol/L Carbon Dioxide 25.0 (21.0-32.0) mmol/L BUN 7 (7-18) mg/dL Creatinine 0.68 (0.51-1.17) mg/dL Est Cr Clr Drug Dosing 78.18 mL/min Estimated GFR (MDRD) > 60 mL/min Glucose 211 H (70-99) mg/dL Lactic Acid (0.4-2.0) mmol/L Uric Acid 4.0 (2.6-7.2) mg/dL Calcium 9.4 (8.5-10.1) mg/dL Magnesium 1.8 (1.8-2.4) mg/dL Total Bilirubin 0.8 (0.2-1.0) mg/dL AST 22 (15-37) U/L ALT 34 (12-78) U/L Alkaline Phosphatase 142 H (46-116) IU/L Total Protein 8.3 H (6.4-8.2) g/dL Albumin 3.7 (3.4-5.0) g/dL Amylase (25-115) U/L Lipase 100 (73-393) U/L Specimen Type Urine Color Urine Appearance Urine pH (5.0-9.0) Ur Specific [place] (1.005-1.030) Urine Protein (NEGATIVE) mg/dL Urine Glucose (UA) (NEGATIVE) mg/dL Urine Ketones (NEGATIVE) mg/dL Urine Occult Blood (NEGATIVE) Urine Nitrite (NEGATIVE) Urine Bilirubin (NEGATIVE) Urine Urobilinogen (0.2-1.0) E.U./dL Ur Leukocyte Esterase (NEGATIVE) Urine RBC /HPF Urine WBC /HPF Ur Epithelial Cells /LPF Urine Bacteria (NONE TO FEW) /HPF Urine Opiates Screen (NEGATIVE) Ur Buprenorphine Scrn (NEGATIVE) Ur Oxycodone Screen (NEGATIVE) Ur EDDP (Meth Metab) (NEGATIVE) Ur Barbiturates Screen (NEGATIVE) Ur Tricyclics Screen (NEGATIVE) Ur Amphetamine Screen (NEGATIVE) U Methamphetamines Scrn (NEGATIVE) Urine MDMA Screen (NEGATIVE) U Benzodiazepines Scrn (NEGATIVE) U Cocaine Metab Screen (NEGATIVE) U Marijuana (THC) Screen (NEGATIVE) Ethyl Alcohol 0.003 (0.000-0.080) g/dL SARS-CoV-2 RNA (JOZEF) (NEGATIVE) SARS-CoV-2 Ag (Rapid) (NEGATIVE) 10/04/20 10/04/20 10/04/20 Range/Units 22:15 22:40 22:40 WBC (4.0-10.2) K/uL RBC (3.77-5.09) M/uL Hgb (11.7-15.5) g/dL Hct (34.0-46.0) % MCV (84.0-98.0) fL MCH (28.2-33.3) pg MCHC (31.7-36.0) g/dL RDW (11.2-14.1) % Plt Count (150-350) K/uL Neut % (Auto) (45.0-80.0) % Lymph % (Auto) (10.0-50.0) % [place] % (Auto) (2.0-14.0) % Eos % (Auto) (0.0-5.0) % Baso % (Auto) (0.0-2.0) % Neut # (Auto) (1.40-7.00) K/uL Lymph # (Auto) (0.50-3.50) K/uL [place] # (Auto) (0.00-1.00) K/uL Eos # (Auto) (0.00-0.50) K/uL Baso # (Auto) (0.00-0.20) K/uL PT (9.5-12.0) SEC INR Sodium (136-145) mmol/L Potassium (3.5-5.1) mmol/L Chloride (98-107) mmol/L Carbon Dioxide (21.0-32.0) mmol/L BUN (7-18) mg/dL Creatinine (0.51-1.17) mg/dL Est Cr Clr Drug Dosing mL/min Estimated GFR (MDRD) mL/min Glucose (70-99) mg/dL Lactic Acid 1.1 (0.4-2.0) mmol/L Uric Acid (2.6-7.2) mg/dL Calcium (8.5-10.1) mg/dL Magnesium (1.8-2.4) mg/dL Total Bilirubin (0.2-1.0) mg/dL AST (15-37) U/L ALT (12-78) U/L Alkaline Phosphatase (46-116) IU/L Total Protein (6.4-8.2) g/dL Albumin (3.4-5.0) g/dL Amylase (25-115) U/L Lipase (73-393) U/L Specimen Type Urinvoid Urine Color Dark yellow Urine Appearance Slightly cloudy Urine pH 8.5 (5.0-9.0) Ur Specific [place] 1.025 (1.005-1.030) Urine Protein 100 H (NEGATIVE) mg/dL Urine Glucose (UA) Negative (NEGATIVE) mg/dL Urine Ketones Negative (NEGATIVE) mg/dL Urine Occult Blood Trace-lysed H (NEGATIVE) Urine Nitrite Negative (NEGATIVE) Urine Bilirubin Negative (NEGATIVE) Urine Urobilinogen 1.0 (0.2-1.0) E.U./dL Ur Leukocyte Esterase Negative (NEGATIVE) Urine RBC 20-30 H /HPF Urine WBC 0-5 /HPF Ur Epithelial Cells Many H /LPF Urine Bacteria Moderate H (NONE TO FEW) /HPF Urine Opiates Screen Negative (NEGATIVE) Ur Buprenorphine Scrn Negative (NEGATIVE) Ur Oxycodone Screen Negative (NEGATIVE) Ur EDDP (Meth Metab) Negative (NEGATIVE) Ur Barbiturates Screen Negative (NEGATIVE) Ur Tricyclics Screen Negative (NEGATIVE) Ur Amphetamine Screen Negative (NEGATIVE) U Methamphetamines Scrn Negative (NEGATIVE) Urine MDMA Screen Negative (NEGATIVE) U Benzodiazepines Scrn Negative (NEGATIVE) U Cocaine Metab Screen Negative (NEGATIVE) U Marijuana (THC) Screen Negative (NEGATIVE) Ethyl Alcohol (0.000-0.080) g/dL SARS-CoV-2 RNA (JOZEF) (NEGATIVE) SARS-CoV-2 Ag (Rapid) (NEGATIVE) Blood cultures x2 were collected. Urine specimen not set up for culture and sensitivity secondary to stool contamination with repeat specimen to be collected for culture and sensitivity. Microbiology 10/04/20 21:30 Influenza Type A Antigen Screen - Final Nasal, Unspecified NEGATIVE INFLUENZA A VIRUS AG REFERENCE RANGE: NEGATIVE Influenza Type B Antigen Screen - Final NEGATIVE INFLUENZA B VIRUS AG REFERENCE RANGE: NEGATIVE Meds: Medications Generic Name Dose Route Start Last Admin Trade Name Freq PRN Reason Stop Dose Admin Sodium Chloride 10 ml 10/04/20 21:38 10/04/20 22:26 Sodium Chloride 0.9% 10 Ml Syringe FLUSH 10 ml ASDIRECTED PRN Administration Keep Vein Open Discontinued Medications Generic Name Dose Route Start Last Admin Trade Name Nilam PRN Reason Stop Dose Admin Ceftriaxone Sodium 2 gm 10/04/20 21:43 10/04/20 22:26 Ceftriaxone 2 Gm Vial IVPUSH 10/04/20 21:44 2 gm ONETIME ONE Administration Famotidine 40 mg 10/04/20 21:38 10/04/20 22:15 Famotidine 20 Mg/2 Ml Sdv IVPUSH 10/04/20 21:39 40 mg ONETIME ONE Administration Lactated Ringer's 1,000 mls @ 999 mls/hr 10/04/20 21:38 10/04/20 22:45 Ringers, Lactated IV 10/04/20 22:38 999 mls/hr .BOLUS ONE Administration Ondansetron HCl 4 mg 10/04/20 21:38 10/04/20 22:10 Ondansetron 4 Mg/2 Ml Sdv IVPUSH 10/04/20 21:39 4 mg ONETIME ONE Administration Ondansetron HCl 4 mg 10/04/20 22:02 10/04/20 22:20 Ondansetron 4 Mg Tab.Dis PO 10/04/20 22:03 Not Given ONETIME ONE Pantoprazole Sodium 40 mg 10/04/20 21:38 10/04/20 22:12 Pantoprazole 40 Mg Vial IVPUSH 10/04/20 21:39 40 mg ONETIME ONE Administration - Radiology Interpretation Free Text/Narrative:: Acute abdominal x-ray shows evidence of moderate COPD and pulmonary fibrosis with no pulmonary infiltrates, pneumothorax, cardiomegaly, CHF, etc. Surgical clips noted in the right lower quadrant consistent with previous appendectomy. No free air, fluid levels, ileus, obstruction, etc. with nonspecific bowel gaseous pattern noted. Departure - Departure Time of Disposition: 23:00 Disposition: Refer to Observation Clinical Impression: Peptic reflux disease, Mixed anxiety depressive disorder, Hyponatremia Nausea and vomiting Qualifiers: Vomiting type: unspecified Vomiting Intractability: non-intractable Qualified Code(s): R11.2 - Nausea with vomiting, unspecified Sinusitis Qualifiers: Sinusitis location: frontal Chronicity: acute Recurrence: non-recurrent Qualified Code(s): J01.10 - Acute frontal sinusitis, unspecified Otitis media Qualifiers: Otitis media type: unspecified Chronicity: acute Qualified Code(s): H66.90 - Otitis media, unspecified, unspecified ear COPD (chronic obstructive pulmonary disease) Qualifiers: COPD type: emphysema Emphysema type: panlobular Qualified Code(s): J43.1 - Panlobular emphysema Hypertension Qualifiers: Hypertension type: essential hypertension Qualified Code(s): I10 - Essential (primary) hypertension Diabetes mellitus Qualifiers: Diabetes mellitus type: type 2 Diabetes mellitus fci insulin use: without fci use Diabetes mellitus complication status: without complication Qualified Code(s): E11.9 - Type 2 diabetes mellitus without complications UTI (urinary tract infection) Qualifiers: Urinary tract infection type: acute cystitis Hematuria presence: without hematuria Qualified Code(s): N30.00 - Acute cystitis without hematuria - Discharge Information *PRESCRIPTION DRUG MONITORING PROGRAM REVIEWED*: Not Applicable *COPY OF PRESCRIPTION DRUG MONITORING REPORT IN PATIENT KETTY: Not Applicable Sepsis Event Note (ED) - Evaluation Sepsis Screening Result: No Definite Risk - Focused Exam Vital Signs: Vital Signs Temp Pulse Resp BP Pulse Ox 10/04/20 22:30 37.4 C 78 14 144/76 H 98 10/04/20 21:19 38.1 C 80 14 165/100 H 98 - Problem List & Annotations (1) Nausea and vomiting SNOMED Code(s): 39579865 Code(s): R11.2 - NAUSEA WITH VOMITING, UNSPECIFIED Status: Acute Priority: High Current Visit: Yes Onset Date: 10/04/20 Annotation/Comment:: Various therapeutic options were discussed with the patient. Nausea somewhat improved prior to placement in observation status although several episodes of emesis prior to arrival and also during initial part of the emergency room visit. Qualifiers: Vomiting type: unspecified Vomiting Intractability: non-intractable Qualified Code(s): R11.2 - Nausea with vomiting, unspecified (2) Peptic reflux disease SNOMED Code(s): 371265540 Code(s): K21.9 - GASTRO-ESOPHAGEAL REFLUX DISEASE WITHOUT ESOPHAGITIS Status: Chronic Priority: Medium Current Visit: Yes Annotation/Comment:: High-dose IV Pepcid and IV Protonix given his GI prophylaxis. (3) Otitis media SNOMED Code(s): 32033901 Code(s): H66.90 - OTITIS MEDIA, UNSPECIFIED, UNSPECIFIED EAR Status: Acute Priority: Medium Current Visit: Yes Onset Date: ~10/04/20 Annotation/Comment:: Note previous Augmentin tablet lost by emesis as above with no history of medication intolerance, etc.. IV Rocephin initiated in the emergency room as above. Qualifiers: Otitis media type: unspecified Chronicity: acute Qualified Code(s): H66.90 - Otitis media, unspecified, unspecified ear (4) Sinusitis SNOMED Code(s): 01984069 Code(s): J32.9 - CHRONIC SINUSITIS, UNSPECIFIED Status: Acute Priority: Medium Current Visit: Yes Onset Date: ~10/04/20 Annotation/Comment:: Possible beginning concomitant sinusitis with her otitis media. IV Rocephin ini tiated as above. Qualifiers: Sinusitis location: frontal Chronicity: acute Recurrence: non-recurrent Qualified Code(s): J01.10 - Acute frontal sinusitis, unspecified (5) COPD (chronic obstructive pulmonary disease) SNOMED Code(s): 42835524 Code(s): J44.9 - CHRONIC OBSTRUCTIVE PULMONARY DISEASE, UNSPECIFIED Status: Chronic Priority: Medium Current Visit: Yes Annotation/Comment:: No evidence of significant pneumonia or bronchitis by clinical exam and chest x- ray. IV Rocephin started in the emergency room as above. Qualifiers: COPD type: emphysema Emphysema type: panlobular Qualified Code(s): J43.1 - Panlobular emphysema (6) Diabetes mellitus SNOMED Code(s): 12649592 Code(s): E11.9 - TYPE 2 DIABETES MELLITUS WITHOUT COMPLICATIONS Status: Chronic Priority: Medium Current Visit: Yes Annotation/Comment:: Elevated random glucose level. Glycosylated hemoglobin in the a.m. Qualifiers: Diabetes mellitus type: type 2 Diabetes mellitus long term care phlebotomist insulin use: without fci use Diabetes mellitus complication status: without complication Qualified Code(s): E11.9 - Type 2 diabetes mellitus without complications (7) Hypertension SNOMED Code(s): 69096138 Code(s): I10 - ESSENTIAL (PRIMARY) HYPERTENSION Status: Chronic Priority: Medium Current Visit: Yes Annotation/Comment:: Blood pressures are somewhat elevated in the emergency room. Continue to observe closely during this hospitalization. Qualifiers: Hypertension type: essential hypertension Qualified Code(s): I10 - Essential (primary) hypertension (8) Hyponatremia SNOMED Code(s): 51022136 Code(s): E87.1 - HYPO-OSMOLALITY AND HYPONATREMIA Status: Acute Priority: Medium Current Visit: Yes Onset Date: 10/04/20 Annotation/Comment:: Lactated Ringer's 1 L IV bolus given in the emergency room. (9) Mixed anxiety depressive disorder SNOMED Code(s): 177727146 Code(s): F41.8 - OTHER SPECIFIED ANXIETY DISORDERS Status: Chronic Priority: Medium Current Visit: Yes Annotation/Comment:: Stable by history with history of alcohol abuse. Normal alcohol level today. (10) UTI (urinary tract infection) SNOMED Code(s): 89867081 Code(s): N39.0 - URINARY TRACT INFECTION, SITE NOT SPECIFIED Status: Acute Priority: High Current Visit: Yes Onset Date: 10/04/20 Annotation/Comment:: Possible concomitant UTI with mild leukocytosis, however normal lactic acid level no evidence of sepsis. Urine specimen was contaminated with stool with urine to be recollected for culture and sensitivity. IV Rocephin therapy initiated as above. Qualifiers: Urinary tract infection type: acute cystitis Hematuria presence: without hematuria Qualified Code(s): N30.00 - Acute cystitis without hematuria - Problem List Review Problem List Initiated/Reviewed/Updated: Yes - My Orders Last 24 Hours: My Active Orders 10/04/20 Breakfast Nothing Per Oral Diet [DIET] 10/04/20 21:38 Peripheral IV Care [RC] . DIRECTED Abdomen Series w Chest 1V [CR] Stat Abdomen Series w Chest 1V [CR] Stat CULTURE URINE [RM] Stat H PYLORI STOOL ANTIGEN [MREF] Urgent OCCULT BLOOD DIAGNOSTIC [OP] Stat Sodium Chloride 0.9% [Saline Flush] 10 ml FLUSH ASDIRECTED PRN Blood Culture x2 Reflex Set [OM.PC] Urgent Obtain Past Medical Record [OM.PC] Urgent Peripheral IV Insertion Adult [OM.PC] Stat Resuscitation Status Stat 10/04/20 21:40 Isolation [COMM] Routine 10/04/20 22:15 CULTURE BLOOD [BC] Stat 10/04/20 22:35 CULTURE BLOOD [BC] Stat - Assessment/Plan Admission H&P: Please use this note as an admission H&P Last 24 Hours: My Active Orders 10/04/20 Breakfast Nothing Per Oral Diet [DIET] 10/04/20 21:38 Peripheral IV Care [RC] . DIRECTED Abdomen Series w Chest 1V [CR] Stat Abdomen Series w Chest 1V [CR] Stat CULTURE URINE [RM] Stat H PYLORI STOOL ANTIGEN [MREF] Urgent OCCULT BLOOD DIAGNOSTIC [OP] Stat Sodium Chloride 0.9% [Saline Flush] 10 ml FLUSH ASDIRECTED PRN Blood Culture x2 Reflex Set [OM.PC] Urgent Obtain Past Medical Record [OM.PC] Urgent Peripheral IV Insertion Adult [OM.PC] Stat Resuscitation Status Stat 10/04/20 21:40 Isolation [COMM] Routine 10/04/20 22:15 CULTURE BLOOD [BC] Stat 10/04/20 22:35 CULTURE BLOOD [BC] Stat Assessment:: As above Plan: As above. Extensive precautions were given to the patient, who is in agreement with the treatment plan. The patient's condition is stable enough for observation status and general supervision.
[2020-10-04] MEDS ORDERED: cefTRIAXone 2 GM Vial IVPUSH ONE (21:43)
[2020-10-04] MEDS ORDERED: Ondansetron 4 MG Tab.DIS PO ONE (22:02)
[2020-10-04] MEDS: Sodium Chloride 0.9% 10 ML Syringe FLUSH PRN (22:26)
[2020-10-04 22:41] LABS: CHLORIDE,CL 97 mmol/L (98-107); SODIUM,NA 133 mmol/L (136-145)
[2020-10-04 23:06] LABS: BARBITURATE SCREEN,URINE NEGATIVE (NEGATIVE); BENZODIAZEPINES SCREEN,URINE NEGATIVE (NEGATIVE); EDDP,URINE SCREEN NEGATIVE (NEGATIVE); TCA SCREEN,URINE NEGATIVE (NEGATIVE); THC SCREEN,URINE 50 NG/ML NEGATIVE (NEGATIVE)
[2020-10-04] MEDS ORDERED: Ondansetron 4 MG/2 ML SDV IVPUSH PRN (23:18)
[2020-10-04] MEDS ORDERED: Lactated Ringers 1,000 ML IV SCH (23:30)
[2020-10-05 08:05] LABS: HEMOGLOBIN A1C 6.7 % (4.3-5.7)
[2020-10-05] MEDS: Acetaminophen 325 MG Tab PO PRN ×3 (08:30→23:48)
[2020-10-05] MEDS: Propranolol 60 MG Cap.ER PO SCH (08:30)
[2020-10-05] MEDS: Loratadine 10 MG Tab PO SCH (08:33)
[2020-10-05] MEDS: Docusate Sodium 100 MG Cap PO SCH ×2 (08:33→17:42)
[2020-10-05] MEDS: Aspirin 81 MG Tab.EC PO SCH (08:38)
[2020-10-05] MEDS: Levothyroxine 150 MCG Tab PO SCH (08:39)
[2020-10-05] MEDS: Lisinopril 20 MG Tab PO SCH (08:39)
[2020-10-05] MEDS: Sodium Chloride 0.9% 10 ML Syringe FLUSH SCH ×2 (08:39→20:09)
[2020-10-05] MEDS: Pantoprazole 40 MG Vial IVPUSH SCH ×2 (08:40→20:09)
[2020-10-05] MEDS: Cyanocobalamin (Vitamin B12) 250 MCG Tab PO SCH (08:51)
[2020-10-05 08:52] LABS: CHLORIDE,CL 100 mmol/L (98-107); SODIUM,NA 135 mmol/L (136-145)
--- NOTE | 2020-10-05 09:50 | PCM.PN ---
- General Info Date of Service: 10/05/20 Admission Dx/Problem (Free Text): 1. Nausea and vomiting 2. Right-sided otitis media 3. Sinusitis Functional Status: Reports: Pain Controlled, Tolerating Diet, Ambulating, Urinating, Incentive Spirometry. Denies: New Symptoms Pain Score: 3 - Review of Systems General: Reports: Fever. Denies: Weakness, Fatigue, Malaise, Chills, Night Sweats, Appetite (Good) HEENT: Reports: Ear Pain (Right-sided), Glasses, Headaches (Sinus headaches), Sinus Congestion. Denies: Sore Throat, Rhinitis, Visual Changes Pulmonary: Reports: Cough. Denies: Shortness of Breath, Pleuritic Chest Pain, Sputum, Hemoptysis, Wheezing Cardiovascular: Reports: Edema (Dependent). Denies: Chest Pain, Palpitations, Dyspnea on Exertion, Orthopnea, Lightheadedness Gastrointestinal: Reports: Nausea (Much improved), Other (No bowel movement since admission). Denies: Abdominal Pain, Constipation, Decreased Appetite, Diarrhea, Difficulty Swallowing, Hematochezia, Melena, Vomiting Genitourinary: Reports: No Symptoms. Denies: Dysuria, Frequency, Burning, Pain, Urgency, Incontinence, Retention, Flank Pain Musculoskeletal: Reports: No Symptoms. Denies: Neck Pain, Shoulder Pain, Arm Pain, Back Pain, Leg Pain Skin: Reports: No Symptoms. Denies: Diaphoresis, Bruising Neurological: Reports: Headache (Sinus). Denies: Confusion, Weakness Psychiatric: Reports: No Symptoms. Denies: Confusion, Depression, Agitation, Hallucinations, Homicidal Ideation - Patient Data Vitals - Most Recent: Last Vital Signs Temp 37.1 C 10/05/20 03:30 Pulse 76 10/05/20 03:30 Resp 12 10/05/20 03:30 BP 118/55 L 10/05/20 08:39 Pulse Ox 99 10/05/20 03:30 Vital Signs - 24 hr 10/04/20 10/04/20 10/04/20 21:19 22:30 23:18 Temperature [ Axillary] Temperature [ 38.1 C 37.4 C 37.0 C Temporal] Pulse, 80 78 74 Peripheral [ Left Pulse Oximetry] Respiratory 14 14 12 Rate Blood Pressure Blood Pressure 165/100 H 144/76 H 121/69 [Left Upper Arm ] O2 Sat by Pulse 98 98 97 Oximetry 10/05/20 10/05/20 03:30 08:39 Temperature [ 37.1 C Axillary] Temperature [ Temporal] Pulse, 76 Peripheral [ Left Pulse Oximetry] Respiratory 12 Rate Blood Pressure 118/55 L Blood Pressure 136/60 [Left Upper Arm ] O2 Sat by Pulse 99 Oximetry Weight - Most Recent: 122.425 kg I&O - Last 24 Hours: Intake & Output 10/04/20 10/05/20 10/05/20 22:59 06:59 14:59 Intake Total 1100 Output Total 700 Balance 400 Imaging Impressions - Last 24 Hours: None Lab Results Last 24 Hours: Laboratory Results - last 24 hr 10/04/20 10/04/20 10/04/20 Range/Units 21:30 21:30 22:15 WBC (4.0-10.2) K/uL RBC (3.77-5.09) M/uL Hgb (11.7-15.5) g/dL Hct (34.0-46.0) % MCV (84.0-98.0) fL MCH (28.2-33.3) pg MCHC (31.7-36.0) g/dL RDW (11.2-14.1) % Plt Count (150-350) K/uL Neut % (Auto) (45.0-80.0) % Lymph % (Auto) (10.0-50.0) % [place] % (Auto) (2.0-14.0) % Eos % (Auto) (0.0-5.0) % Baso % (Auto) (0.0-2.0) % Neut # (Auto) (1.40-7.00) K/uL Lymph # (Auto) (0.50-3.50) K/uL [place] # (Auto) (0.00-1.00) K/uL Eos # (Auto) (0.00-0.50) K/uL Baso # (Auto) (0.00-0.20) K/uL PT (9.5-12.0) SEC INR Sodium (136-145) mmol/L Potassium (3.5-5.1) mmol/L Chloride (98-107) mmol/L Carbon Dioxide (21.0-32.0) mmol/L BUN (7-18) mg/dL Creatinine (0.51-1.17) mg/dL Est Cr Clr Drug Dosing mL/min Estimated GFR (MDRD) mL/min Glucose (70-99) mg/dL Hemoglobin A1c (4.3-5.7) % Lactic Acid (0.4-2.0) mmol/L Uric Acid (2.6-7.2) mg/dL Calcium (8.5-10.1) mg/dL Magnesium (1.8-2.4) mg/dL Total Bilirubin (0.2-1.0) mg/dL AST (15-37) U/L ALT (12-78) U/L Alkaline Phosphatase (46-116) IU/L Total Protein (6.4-8.2) g/dL Albumin (3.4-5.0) g/dL Triglycerides (30-150) mg/dL Cholesterol (100-200) mg/dL LDL Cholesterol, Calc (0-100) mg/dL HDL Cholesterol (40-60) mg/dL Amylase 35 (25-115) U/L Lipase (73-393) U/L Vitamin B12 (193-986) pg/mL Folate (8.6-58.9) ng/mL Specimen Type Urine Color Urine Appearance Urine pH (5.0-9.0) Ur Specific [place] (1.005-1.030) Urine Protein (NEGATIVE) mg/dL Urine Glucose (UA) (NEGATIVE) mg/dL Urine Ketones (NEGATIVE) mg/dL Urine Occult Blood (NEGATIVE) Urine Nitrite (NEGATIVE) Urine Bilirubin (NEGATIVE) Urine Urobilinogen (0.2-1.0) E.U./dL Ur Leukocyte Esterase (NEGATIVE) Urine RBC /HPF Urine WBC /HPF Ur Epithelial Cells /LPF Urine Bacteria (NONE TO FEW) /HPF Urine Opiates Screen (NEGATIVE) Ur Buprenorphine Scrn (NEGATIVE) Ur Oxycodone Screen (NEGATIVE) Ur EDDP (Meth Metab) (NEGATIVE) Ur Barbiturates Screen (NEGATIVE) Ur Tricyclics Screen (NEGATIVE) Ur Amphetamine Screen (NEGATIVE) U Methamphetamines Scrn (NEGATIVE) Urine MDMA Screen (NEGATIVE) U Benzodiazepines Scrn (NEGATIVE) U Cocaine Metab Screen (NEGATIVE) U Marijuana (THC) Screen (NEGATIVE) Ethyl Alcohol (0.000-0.080) g/dL SARS-CoV-2 RNA (JOZEF) Negative (NEGATIVE) SARS-CoV-2 Ag (Rapid) Negative (NEGATIVE) 10/04/20 10/04/20 10/04/20 Range/Units 22:15 22:15 22:15 WBC 13.0 H (4.0-10.2) K/uL RBC 4.26 (3.77-5.09) M/uL Hgb 15.2 (11.7-15.5) g/dL Hct 43.7 (34.0-46.0) % MCV 102.6 H (84.0-98.0) fL MCH 35.7 H (28.2-33.3) pg MCHC 34.8 (31.7-36.0) g/dL RDW 12.4 (11.2-14.1) % Plt Count 213 (150-350) K/uL Neut % (Auto) 80.2 H (45.0-80.0) % Lymph % (Auto) 11.4 (10.0-50.0) % [place] % (Auto) 6.9 (2.0-14.0) % Eos % (Auto) 1.3 (0.0-5.0) % Baso % (Auto) 0.2 (0.0-2.0) % Neut # (Auto) 10.43 H (1.40-7.00) K/uL Lymph # (Auto) 1.48 (0.50-3.50) K/uL [place] # (Auto) 0.89 (0.00-1.00) K/uL Eos # (Auto) 0.17 (0.00-0.50) K/uL Baso # (Auto) 0.02 (0.00-0.20) K/uL PT 9.9 (9.5-12.0) SEC INR 1.0 Sodium 133 L (136-145) mmol/L Potassium 4.3 (3.5-5.1) mmol/L Chloride 97 L (98-107) mmol/L Carbon Dioxide 25.0 (21.0-32.0) mmol/L BUN 7 (7-18) mg/dL Creatinine 0.68 (0.51-1.17) mg/dL Est Cr Clr Drug Dosing 78.18 mL/min Estimated GFR (MDRD) > 60 mL/min Glucose 211 H (70-99) mg/dL Hemoglobin A1c (4.3-5.7) % Lactic Acid (0.4-2.0) mmol/L Uric Acid 4.0 (2.6-7.2) mg/dL Calcium 9.4 (8.5-10.1) mg/dL Magnesium 1.8 (1.8-2.4) mg/dL Total Bilirubin 0.8 (0.2-1.0) mg/dL AST 22 (15-37) U/L ALT 34 (12-78) U/L Alkaline Phosphatase 142 H (46-116) IU/L Total Protein 8.3 H (6.4-8.2) g/dL Albumin 3.7 (3.4-5.0) g/dL Triglycerides (30-150) mg/dL Cholesterol (100-200) mg/dL LDL Cholesterol, Calc (0-100) mg/dL HDL Cholesterol (40-60) mg/dL Amylase (25-115) U/L Lipase 100 (73-393) U/L Vitamin B12 (193-986) pg/mL Folate (8.6-58.9) ng/mL Specimen Type Urine Color Urine Appearance Urine pH (5.0-9.0) Ur Specific [place] (1.005-1.030) Urine Protein (NEGATIVE) mg/dL Urine Glucose (UA) (NEGATIVE) mg/dL Urine Ketones (NEGATIVE) mg/dL Urine Occult Blood (NEGATIVE) Urine Nitrite (NEGATIVE) Urine Bilirubin (NEGATIVE) Urine Urobilinogen (0.2-1.0) E.U./dL Ur Leukocyte Esterase (NEGATIVE) Urine RBC /HPF Urine WBC /HPF Ur Epithelial Cells /LPF Urine Bacteria (NONE TO FEW) /HPF Urine Opiates Screen (NEGATIVE) Ur Buprenorphine Scrn (NEGATIVE) Ur Oxycodone Screen (NEGATIVE) Ur EDDP (Meth Metab) (NEGATIVE) Ur Barbiturates Screen (NEGATIVE) Ur Tricyclics Screen (NEGATIVE) Ur Amphetamine Screen (NEGATIVE) U Methamphetamines Scrn (NEGATIVE) Urine MDMA Screen (NEGATIVE) U Benzodiazepines Scrn (NEGATIVE) U Cocaine Metab Screen (NEGATIVE) U Marijuana (THC) Screen (NEGATIVE) Ethyl Alcohol 0.003 (0.000-0.080) g/dL SARS-CoV-2 RNA (JOZEF) (NEGATIVE) SARS-CoV-2 Ag (Rapid) (NEGATIVE) 10/04/20 10/04/20 10/04/20 Range/Units 22:15 22:40 22:40 WBC (4.0-10.2) K/uL RBC (3.77-5.09) M/uL Hgb (11.7-15.5) g/dL Hct (34.0-46.0) % MCV (84.0-98.0) fL MCH (28.2-33.3) pg MCHC (31.7-36.0) g/dL RDW (11.2-14.1) % Plt Count (150-350) K/uL Neut % (Auto) (45.0-80.0) % Lymph % (Auto) (10.0-50.0) % [place] % (Auto) (2.0-14.0) % Eos % (Auto) (0.0-5.0) % Baso % (Auto) (0.0-2.0) % Neut # (Auto) (1.40-7.00) K/uL Lymph # (Auto) (0.50-3.50) K/uL [place] # (Auto) (0.00-1.00) K/uL Eos # (Auto) (0.00-0.50) K/uL Baso # (Auto) (0.00-0.20) K/uL PT (9.5-12.0) SEC INR Sodium (136-145) mmol/L Potassium (3.5-5.1) mmol/L Chloride (98-107) mmol/L Carbon Dioxide (21.0-32.0) mmol/L BUN (7-18) mg/dL Creatinine (0.51-1.17) mg/dL Est Cr Clr Drug Dosing mL/min Estimated GFR (MDRD) mL/min Glucose (70-99) mg/dL Hemoglobin A1c (4.3-5.7) % Lactic Acid 1.1 (0.4-2.0) mmol/L Uric Acid (2.6-7.2) mg/dL Calcium (8.5-10.1) mg/dL Magnesium (1.8-2.4) mg/dL Total Bilirubin (0.2-1.0) mg/dL AST (15-37) U/L ALT (12-78) U/L Alkaline Phosphatase (46-116) IU/L Total Protein (6.4-8.2) g/dL Albumin (3.4-5.0) g/dL Triglycerides (30-150) mg/dL Cholesterol (100-200) mg/dL LDL Cholesterol, Calc (0-100) mg/dL HDL Cholesterol (40-60) mg/dL Amylase (25-115) U/L Lipase (73-393) U/L Vitamin B12 (193-986) pg/mL Folate (8.6-58.9) ng/mL Specimen Type Urinvoid Urine Color Dark yellow Urine Appearance Slightly cloudy Urine pH 8.5 (5.0-9.0) Ur Specific [place] 1.025 (1.005-1.030) Urine Protein 100 H (NEGATIVE) mg/dL Urine Glucose (UA) Negative (NEGATIVE) mg/dL Urine Ketones Negative (NEGATIVE) mg/dL Urine Occult Blood Trace-lysed H (NEGATIVE) Urine Nitrite Negative (NEGATIVE) Urine Bilirubin Negative (NEGATIVE) Urine Urobilinogen 1.0 (0.2-1.0) E.U./dL Ur Leukocyte Esterase Negative (NEGATIVE) Urine RBC 20-30 H /HPF Urine WBC 0-5 /HPF Ur Epithelial Cells Many H /LPF Urine Bacteria Moderate H (NONE TO FEW) /HPF Urine Opiates Screen Negative (NEGATIVE) Ur Buprenorphine Scrn Negative (NEGATIVE) Ur Oxycodone Screen Negative (NEGATIVE) Ur EDDP (Meth Metab) Negative (NEGATIVE) Ur Barbiturates Screen Negative (NEGATIVE) Ur Tricyclics Screen Negative (NEGATIVE) Ur Amphetamine Screen Negative (NEGATIVE) U Methamphetamines Scrn Negative (NEGATIVE) Urine MDMA Screen Negative (NEGATIVE) U Benzodiazepines Scrn Negative (NEGATIVE) U Cocaine Metab Screen Negative (NEGATIVE) U Marijuana (THC) Screen Negative (NEGATIVE) Ethyl Alcohol (0.000-0.080) g/dL SARS-CoV-2 RNA (JOZEF) (NEGATIVE) SARS-CoV-2 Ag (Rapid) (NEGATIVE) 10/05/20 10/05/20 10/05/20 Range/Units 07:35 07:35 07:35 WBC 8.0 (4.0-10.2) K/uL RBC 3.79 (3.77-5.09) M/uL Hgb 13.4 D (11.7-15.5) g/dL Hct 39.6 (34.0-46.0) % MCV 104.5 H (84.0-98.0) fL MCH 35.4 H (28.2-33.3) pg MCHC 33.8 (31.7-36.0) g/dL RDW 12.4 (11.2-14.1) % Plt Count 192 (150-350) K/uL Neut % (Auto) 69.8 (45.0-80.0) % Lymph % (Auto) 21.1 (10.0-50.0) % [place] % (Auto) 4.9 (2.0-14.0) % Eos % (Auto) 4.1 (0.0-5.0) % Baso % (Auto) 0.1 (0.0-2.0) % Neut # (Auto) 5.59 (1.40-7.00) K/uL Lymph # (Auto) 1.69 (0.50-3.50) K/uL [place] # (Auto) 0.39 (0.00-1.00) K/uL Eos # (Auto) 0.33 (0.00-0.50) K/uL Baso # (Auto) 0.01 (0.00-0.20) K/uL PT (9.5-12.0) SEC INR Sodium 135 L (136-145) mmol/L Potassium 3.9 (3.5-5.1) mmol/L Chloride 100 (98-107) mmol/L Carbon Dioxide 27.4 (21.0-32.0) mmol/L BUN 9 (7-18) mg/dL Creatinine 0.75 (0.51-1.17) mg/dL Est Cr Clr Drug Dosing 70.88 mL/min Estimated GFR (MDRD) > 60 mL/min Glucose 152 H (70-99) mg/dL Hemoglobin A1c 6.7 H (4.3-5.7) % Lactic Acid (0.4-2.0) mmol/L Uric Acid (2.6-7.2) mg/dL Calcium 8.4 L (8.5-10.1) mg/dL Magnesium (1.8-2.4) mg/dL Total Bilirubin 0.7 (0.2-1.0) mg/dL AST 23 (15-37) U/L ALT 30 (12-78) U/L Alkaline Phosphatase 110 (46-116) IU/L Total Protein 6.8 (6.4-8.2) g/dL Albumin 2.9 L (3.4-5.0) g/dL Triglycerides 111 (30-150) mg/dL Cholesterol 168 (100-200) mg/dL LDL Cholesterol, Calc 112 H (0-100) mg/dL HDL Cholesterol 34 L (40-60) mg/dL Amylase (25-115) U/L Lipase (73-393) U/L Vitamin B12 825 (193-986) pg/mL Folate 20.1 (8.6-58.9) ng/mL Specimen Type Urine Color Urine Appearance Urine pH (5.0-9.0) Ur Specific [place] (1.005-1.030) Urine Protein (NEGATIVE) mg/dL Urine Glucose (UA) (NEGATIVE) mg/dL Urine Ketones (NEGATIVE) mg/dL Urine Occult Blood (NEGATIVE) Urine Nitrite (NEGATIVE) Urine Bilirubin (NEGATIVE) Urine Urobilinogen (0.2-1.0) E.U./dL Ur Leukocyte Esterase (NEGATIVE) Urine RBC /HPF Urine WBC /HPF Ur Epithelial Cells /LPF Urine Bacteria (NONE TO FEW) /HPF Urine Opiates Screen (NEGATIVE) Ur Buprenorphine Scrn (NEGATIVE) Ur Oxycodone Screen (NEGATIVE) Ur EDDP (Meth Metab) (NEGATIVE) Ur Barbiturates Screen (NEGATIVE) Ur Tricyclics Screen (NEGATIVE) Ur Amphetamine Screen (NEGATIVE) U Methamphetamines Scrn (NEGATIVE) Urine MDMA Screen (NEGATIVE) U Benzodiazepines Scrn (NEGATIVE) U Cocaine Metab Screen (NEGATIVE) U Marijuana (THC) Screen (NEGATIVE) Ethyl Alcohol (0.000-0.080) g/dL SARS-CoV-2 RNA (JOZEF) (NEGATIVE) SARS-CoV-2 Ag (Rapid) (NEGATIVE) Thiamine level pending. Randal Results Last 24 Hours: Microbiology 10/04/20 21:30 Influenza Type A Antigen Screen - Final Nasal, Unspecified NEGATIVE INFLUENZA A VIRUS AG REFERENCE RANGE: NEGATIVE Influenza Type B Antigen Screen - Final NEGATIVE INFLUENZA B VIRUS AG REFERENCE RANGE: NEGATIVE Med Orders - Current: Current Medications Acetaminophen (Acetaminophen 325 Mg Tab) 650 mg PO Q4H PRN PRN Reason: Pain Last Admin: 10/05/20 08:30 Dose: 650 mg Documented by: Aspirin (Aspirin 81 Mg Tab.Ec) 81 mg PO DAILY [facility] Last Admin: 10/05/20 08:38 Dose: 81 mg Documented by: Cyanocobalamin (Cyanocobalamin (Vitamin B12) 250 Mcg Tab) 500 mcg PO DAILY [facility] Last Admin: 10/05/20 08:51 Dose: 500 mcg Documented by: Docusate Sodium (Docusate Sodium 100 Mg Cap) 200 mg PO BID [facility] Last Admin: 10/05/20 08:33 Dose: 200 mg Documented by: Famotidine (Famotidine 20 Mg/2 Ml Sdv) 20 mg IVPUSH Q12H [facility] Folic Acid (Folic Acid 1 Mg Tab) 1 mg PO DAILY [facility] Ceftriaxone Sodium 1 gm/ (Sodium Chloride) 100 mls @ 200 mls/hr IV Q12H [facility] Lactated Ringer's (Ringers, Lactated) 1,000 mls @ 100 mls/hr IV ASDIRECTED [facility] Last Admin: 10/05/20 00:13 Dose: 100 mls/hr Documented by: Levothyroxine Sodium (Levothyroxine 150 Mcg Tab) 150 mcg PO ACBREAKFAST [facility] Last Admin: 10/05/20 08:39 Dose: 150 mcg Documented by: Lisinopril (Lisinopril 20 Mg Tab) 40 mg PO DAILY [facility] Last Admin: 10/05/20 08:39 Dose: 40 mg Documented by: Loratadine (Loratadine 10 Mg Tab) 10 mg PO DAILY [facility] Last Admin: 10/05/20 08:33 Dose: 10 mg Documented by: Meloxicam (Meloxicam 15 Mg Tab) 15 mg PO DAILY [facility] Last Admin: 10/05/20 08:30 Dose: 15 mg Documented by: Ondansetron HCl (Ondansetron 4 Mg/2 Ml Sdv) 4 mg IVPUSH Q6H PRN PRN Reason: Nausea/Vomiting Last Admin: 10/05/20 03:28 Dose: 4 mg Documented by: Pantoprazole Sodium (Pantoprazole 40 Mg Vial) 40 mg IVPUSH Q12H [facility] Last Admin: 10/05/20 08:40 Dose: 40 mg Documented by: Propranolol HCl (Propranolol 60 Mg Cap.Er) 120 mg PO DAILY [facility] Last Admin: 10/05/20 08:30 Dose: 120 mg Documented by: Sodium Chloride (Sodium Chloride 0.9% 10 Ml Syringe) 10 ml FLUSH ASDIRECTED PRN PRN Reason: Keep Vein Open Last Admin: 10/04/20 22:26 Dose: 10 ml Documented by: Sodium Chloride (Sodium Chloride 0.9% 10 Ml Syringe) 10 ml FLUSH Q12HR [facility] Last Admin: 10/05/20 08:39 Dose: 10 ml Documented by: Temazepam (Temazepam 15 Mg Cap) 15 mg PO DAILY@2000 PRN PRN Reason: Insomnia Discontinued Medications Ceftriaxone Sodium (Ceftriaxone 2 Gm Vial) 2 gm IVPUSH ONETIME ONE Stop: 10/04/20 21:44 Last Admin: 10/04/20 22:26 Dose: 2 gm Documented by: Famotidine (Famotidine 20 Mg/2 Ml Sdv) 40 mg IVPUSH ONETIME ONE Stop: 10/04/20 21:39 Last Admin: 10/04/20 22:15 Dose: 40 mg Documented by: Lactated Ringer's (Ringers, Lactated) 1,000 mls @ 999 mls/hr IV .BOLUS ONE Stop: 10/04/20 22:38 Last Admin: 10/04/20 22:45 Dose: 999 mls/hr Documented by: Non-Formulary Medication (Folic Acid [Folic Acid]) 0.8 mg PO DAILY [facility] Ondansetron HCl (Ondansetron 4 Mg/2 Ml Sdv) 4 mg IVPUSH ONETIME ONE Stop: 10/04/20 21:39 Last Admin: 10/04/20 22:10 Dose: 4 mg Documented by: Ondansetron HCl (Ondansetron 4 Mg Tab.Dis) 4 mg PO ONETIME ONE Stop: 10/04/20 22:03 Last Admin: 10/04/20 22:20 Dose: Not Given Documented by: Pantoprazole Sodium (Pantoprazole 40 Mg Vial) 40 mg IVPUSH ONETIME ONE Stop: 10/04/20 21:39 Last Admin: 10/04/20 22:12 Dose: 40 mg Documented by: - Exam Quality Assessment: DVT Prophylaxis. No: Supplemental Oxygen, Central Line/PICC, Urine Catheter, Skin Breakdown General: Alert, Oriented, Cooperative, No Acute Distress HEENT: Pupils Equal, Pupils Reactive, EOMI, Mucous Membr. Moist/[place], Other (Stable mild sinus pressure without palpation pain in her right sided TM injection). No: Scleral Icterus Neck: Supple, Trachea Midline, No JVD, No Thyromegaly, +2 Carotid Pulse wo Bruit . No: Lymphadenopathy Lungs: Clear to Auscultation, Normal Respiratory Effort. No: Rub, Wheezing Cardiovascular: Regular Rate, Regular Rhythm, No Murmurs. No: Gallops, Rubs GI/Abdominal Exam: Normal Bowel Sounds, Soft, Non-Tender, No Organomegaly, No Distention, No Abnormal Bruit, No Mass, Other (Obese). No: Guarding (Female) Exam: Deferred Back Exam: Normal Inspection, Full Range of Motion. No: CVA Tenderness (L), CVA Tenderness (R), Muscle Spasm Extremities: Normal Range of Motion, Non-Tender, Normal Capillary Refill, Pedal Edema (+1 bilateral pedal/pretibial edema). No: Nuzhat's Sign Peripheral Pulses: 2+: Radial (L), Radial (R), Dorsalis Pedis (L), Dorsalis Pedis (R) Skin: Warm, Dry, Intact. No: Ecchymosis Neurological: No New Focal Deficit Psy/Mental Status: Alert, Normal Affect, Normal Mood. No: Agitated, Hallucinations, Withdrawal Symptoms - Patient Data Lab Results Last 24 hrs: Laboratory Results - last 24 hr 10/04/20 10/04/20 10/04/20 Range/Units 21:30 21:30 22:15 WBC (4.0-10.2) K/uL RBC (3.77-5.09) M/uL Hgb (11.7-15.5) g/dL Hct (34.0-46.0) % MCV (84.0-98.0) fL MCH (28.2-33.3) pg MCHC (31.7-36.0) g/dL RDW (11.2-14.1) % Plt Count (150-350) K/uL Neut % (Auto) (45.0-80.0) % Lymph % (Auto) (10.0-50.0) % [place] % (Auto) (2.0-14.0) % Eos % (Auto) (0.0-5.0) % Baso % (Auto) (0.0-2.0) % Neut # (Auto) (1.40-7.00) K/uL Lymph # (Auto) (0.50-3.50) K/uL [place] # (Auto) (0.00-1.00) K/uL Eos # (Auto) (0.00-0.50) K/uL Baso # (Auto) (0.00-0.20) K/uL PT (9.5-12.0) SEC INR Sodium (136-145) mmol/L Potassium (3.5-5.1) mmol/L Chloride (98-107) mmol/L Carbon Dioxide (21.0-32.0) mmol/L BUN (7-18) mg/dL Creatinine (0.51-1.17) mg/dL Est Cr Clr Drug Dosing mL/min Estimated GFR (MDRD) mL/min Glucose (70-99) mg/dL Hemoglobin A1c (4.3-5.7) % Lactic Acid (0.4-2.0) mmol/L Uric Acid (2.6-7.2) mg/dL Calcium (8.5-10.1) mg/dL Magnesium (1.8-2.4) mg/dL Total Bilirubin (0.2-1.0) mg/dL AST (15-37) U/L ALT (12-78) U/L Alkaline Phosphatase (46-116) IU/L Total Protein (6.4-8.2) g/dL Albumin (3.4-5.0) g/dL Triglycerides (30-150) mg/dL Cholesterol (100-200) mg/dL LDL Cholesterol, Calc (0-100) mg/dL HDL Cholesterol (40-60) mg/dL Amylase 35 (25-115) U/L Lipase (73-393) U/L Vitamin B12 (193-986) pg/mL Folate (8.6-58.9) ng/mL Specimen Type Urine Color Urine Appearance Urine pH (5.0-9.0) Ur Specific [place] (1.005-1.030) Urine Protein (NEGATIVE) mg/dL Urine Glucose (UA) (NEGATIVE) mg/dL Urine Ketones (NEGATIVE) mg/dL Urine Occult Blood (NEGATIVE) Urine Nitrite (NEGATIVE) Urine Bilirubin (NEGATIVE) Urine Urobilinogen (0.2-1.0) E.U./dL Ur Leukocyte Esterase (NEGATIVE) Urine RBC /HPF Urine WBC /HPF Ur Epithelial Cells /LPF Urine Bacteria (NONE TO FEW) /HPF Urine Opiates Screen (NEGATIVE) Ur Buprenorphine Scrn (NEGATIVE) Ur Oxycodone Screen (NEGATIVE) Ur EDDP (Meth Metab) (NEGATIVE) Ur Barbiturates Screen (NEGATIVE) Ur Tricyclics Screen (NEGATIVE) Ur Amphetamine Screen (NEGATIVE) U Methamphetamines Scrn (NEGATIVE) Urine MDMA Screen (NEGATIVE) U Benzodiazepines Scrn (NEGATIVE) U Cocaine Metab Screen (NEGATIVE) U Marijuana (THC) Screen (NEGATIVE) Ethyl Alcohol (0.000-0.080) g/dL SARS-CoV-2 RNA (JOZEF) Negative (NEGATIVE) SARS-CoV-2 Ag (Rapid) Negative (NEGATIVE) 10/04/20 10/04/20 10/04/20 Range/Units 22:15 22:15 22:15 WBC 13.0 H (4.0-10.2) K/uL RBC 4.26 (3.77-5.09) M/uL Hgb 15.2 (11.7-15.5) g/dL Hct 43.7 (34.0-46.0) % MCV 102.6 H (84.0-98.0) fL MCH 35.7 H (28.2-33.3) pg MCHC 34.8 (31.7-36.0) g/dL RDW 12.4 (11.2-14.1) % Plt Count 213 (150-350) K/uL Neut % (Auto) 80.2 H (45.0-80.0) % Lymph % (Auto) 11.4 (10.0-50.0) % [place] % (Auto) 6.9 (2.0-14.0) % Eos % (Auto) 1.3 (0.0-5.0) % Baso % (Auto) 0.2 (0.0-2.0) % Neut # (Auto) 10.43 H (1.40-7.00) K/uL Lymph # (Auto) 1.48 (0.50-3.50) K/uL [place] # (Auto) 0.89 (0.00-1.00) K/uL Eos # (Auto) 0.17 (0.00-0.50) K/uL Baso # (Auto) 0.02 (0.00-0.20) K/uL PT 9.9 (9.5-12.0) SEC INR 1.0 Sodium 133 L (136-145) mmol/L Potassium 4.3 (3.5-5.1) mmol/L Chloride 97 L (98-107) mmol/L Carbon Dioxide 25.0 (21.0-32.0) mmol/L BUN 7 (7-18) mg/dL Creatinine 0.68 (0.51-1.17) mg/dL Est Cr Clr Drug Dosing 78.18 mL/min Estimated GFR (MDRD) > 60 mL/min Glucose 211 H (70-99) mg/dL Hemoglobin A1c (4.3-5.7) % Lactic Acid (0.4-2.0) mmol/L Uric Acid 4.0 (2.6-7.2) mg/dL Calcium 9.4 (8.5-10.1) mg/dL Magnesium 1.8 (1.8-2.4) mg/dL Total Bilirubin 0.8 (0.2-1.0) mg/dL AST 22 (15-37) U/L ALT 34 (12-78) U/L Alkaline Phosphatase 142 H (46-116) IU/L Total Protein 8.3 H (6.4-8.2) g/dL Albumin 3.7 (3.4-5.0) g/dL Triglycerides (30-150) mg/dL Cholesterol (100-200) mg/dL LDL Cholesterol, Calc (0-100) mg/dL HDL Cholesterol (40-60) mg/dL Amylase (25-115) U/L Lipase 100 (73-393) U/L Vitamin B12 (193-986) pg/mL Folate (8.6-58.9) ng/mL Specimen Type Urine Color Urine Appearance Urine pH (5.0-9.0) Ur Specific [place] (1.005-1.030) Urine Protein (NEGATIVE) mg/dL Urine Glucose (UA) (NEGATIVE) mg/dL Urine Ketones (NEGATIVE) mg/dL Urine Occult Blood (NEGATIVE) Urine Nitrite (NEGATIVE) Urine Bilirubin (NEGATIVE) Urine Urobilinogen (0.2-1.0) E.U./dL Ur Leukocyte Esterase (NEGATIVE) Urine RBC /HPF Urine WBC /HPF Ur Epithelial Cells /LPF Urine Bacteria (NONE TO FEW) /HPF Urine Opiates Screen (NEGATIVE) Ur Buprenorphine Scrn (NEGATIVE) Ur Oxycodone Screen (NEGATIVE) Ur EDDP (Meth Metab) (NEGATIVE) Ur Barbiturates Screen (NEGATIVE) Ur Tricyclics Screen (NEGATIVE) Ur Amphetamine Screen (NEGATIVE) U Methamphetamines Scrn (NEGATIVE) Urine MDMA Screen (NEGATIVE) U Benzodiazepines Scrn (NEGATIVE) U Cocaine Metab Screen (NEGATIVE) U Marijuana (THC) Screen (NEGATIVE) Ethyl Alcohol 0.003 (0.000-0.080) g/dL SARS-CoV-2 RNA (JOZEF) (NEGATIVE) SARS-CoV-2 Ag (Rapid) (NEGATIVE) 10/04/20 10/04/20 10/04/20 Range/Units 22:15 22:40 22:40 WBC (4.0-10.2) K/uL RBC (3.77-5.09) M/uL Hgb (11.7-15.5) g/dL Hct (34.0-46.0) % MCV (84.0-98.0) fL MCH (28.2-33.3) pg MCHC (31.7-36.0) g/dL RDW (11.2-14.1) % Plt Count (150-350) K/uL Neut % (Auto) (45.0-80.0) % Lymph % (Auto) (10.0-50.0) % [place] % (Auto) (2.0-14.0) % Eos % (Auto) (0.0-5.0) % Baso % (Auto) (0.0-2.0) % Neut # (Auto) (1.40-7.00) K/uL Lymph # (Auto) (0.50-3.50) K/uL [place] # (Auto) (0.00-1.00) K/uL Eos # (Auto) (0.00-0.50) K/uL Baso # (Auto) (0.00-0.20) K/uL PT (9.5-12.0) SEC INR Sodium (136-145) mmol/L Potassium (3.5-5.1) mmol/L Chloride (98-107) mmol/L Carbon Dioxide (21.0-32.0) mmol/L BUN (7-18) mg/dL Creatinine (0.51-1.17) mg/dL Est Cr Clr Drug Dosing mL/min Estimated GFR (MDRD) mL/min Glucose (70-99) mg/dL Hemoglobin A1c (4.3-5.7) % Lactic Acid 1.1 (0.4-2.0) mmol/L Uric Acid (2.6-7.2) mg/dL Calcium (8.5-10.1) mg/dL Magnesium (1.8-2.4) mg/dL Total Bilirubin (0.2-1.0) mg/dL AST (15-37) U/L ALT (12-78) U/L Alkaline Phosphatase (46-116) IU/L Total Protein (6.4-8.2) g/dL Albumin (3.4-5.0) g/dL Triglycerides (30-150) mg/dL Cholesterol (100-200) mg/dL LDL Cholesterol, Calc (0-100) mg/dL HDL Cholesterol (40-60) mg/dL Amylase (25-115) U/L Lipase (73-393) U/L Vitamin B12 (193-986) pg/mL Folate (8.6-58.9) ng/mL Specimen Type Urinvoid Urine Color Dark yellow Urine Appearance Slightly cloudy Urine pH 8.5 (5.0-9.0) Ur Specific [place] 1.025 (1.005-1.030) Urine Protein 100 H (NEGATIVE) mg/dL Urine Glucose (UA) Negative (NEGATIVE) mg/dL Urine Ketones Negative (NEGATIVE) mg/dL Urine Occult Blood Trace-lysed H (NEGATIVE) Urine Nitrite Negative (NEGATIVE) Urine Bilirubin Negative (NEGATIVE) Urine Urobilinogen 1.0 (0.2-1.0) E.U./dL Ur Leukocyte Esterase Negative (NEGATIVE) Urine RBC 20-30 H /HPF Urine WBC 0-5 /HPF Ur Epithelial Cells Many H /LPF Urine Bacteria Moderate H (NONE TO FEW) /HPF Urine Opiates Screen Negative (NEGATIVE) Ur Buprenorphine Scrn Negative (NEGATIVE) Ur Oxycodone Screen Negative (NEGATIVE) Ur EDDP (Meth Metab) Negative (NEGATIVE) Ur Barbiturates Screen Negative (NEGATIVE) Ur Tricyclics Screen Negative (NEGATIVE) Ur Amphetamine Screen Negative (NEGATIVE) U Methamphetamines Scrn Negative (NEGATIVE) Urine MDMA Screen Negative (NEGATIVE) U Benzodiazepines Scrn Negative (NEGATIVE) U Cocaine Metab Screen Negative (NEGATIVE) U Marijuana (THC) Screen Negative (NEGATIVE) Ethyl Alcohol (0.000-0.080) g/dL SARS-CoV-2 RNA (JOZEF) (NEGATIVE) SARS-CoV-2 Ag (Rapid) (NEGATIVE) 10/05/20 10/05/20 10/05/20 Range/Units 07:35 07:35 07:35 WBC 8.0 (4.0-10.2) K/uL RBC 3.79 (3.77-5.09) M/uL Hgb 13.4 D (11.7-15.5) g/dL Hct 39.6 (34.0-46.0) % MCV 104.5 H (84.0-98.0) fL MCH 35.4 H (28.2-33.3) pg MCHC 33.8 (31.7-36.0) g/dL RDW 12.4 (11.2-14.1) % Plt Count 192 (150-350) K/uL Neut % (Auto) 69.8 (45.0-80.0) % Lymph % (Auto) 21.1 (10.0-50.0) % [place] % (Auto) 4.9 (2.0-14.0) % Eos % (Auto) 4.1 (0.0-5.0) % Baso % (Auto) 0.1 (0.0-2.0) % Neut # (Auto) 5.59 (1.40-7.00) K/uL Lymph # (Auto) 1.69 (0.50-3.50) K/uL [place] # (Auto) 0.39 (0.00-1.00) K/uL Eos # (Auto) 0.33 (0.00-0.50) K/uL Baso # (Auto) 0.01 (0.00-0.20) K/uL PT (9.5-12.0) SEC INR Sodium 135 L (136-145) mmol/L Potassium 3.9 (3.5-5.1) mmol/L Chloride 100 (98-107) mmol/L Carbon Dioxide 27.4 (21.0-32.0) mmol/L BUN 9 (7-18) mg/dL Creatinine 0.75 (0.51-1.17) mg/dL Est Cr Clr Drug Dosing 70.88 mL/min Estimated GFR (MDRD) > 60 mL/min Glucose 152 H (70-99) mg/dL Hemoglobin A1c 6.7 H (4.3-5.7) % Lactic Acid (0.4-2.0) mmol/L Uric Acid (2.6-7.2) mg/dL Calcium 8.4 L (8.5-10.1) mg/dL Magnesium (1.8-2.4) mg/dL Total Bilirubin 0.7 (0.2-1.0) mg/dL AST 23 (15-37) U/L ALT 30 (12-78) U/L Alkaline Phosphatase 110 (46-116) IU/L Total Protein 6.8 (6.4-8.2) g/dL Albumin 2.9 L (3.4-5.0) g/dL Triglycerides 111 (30-150) mg/dL Cholesterol 168 (100-200) mg/dL LDL Cholesterol, Calc 112 H (0-100) mg/dL HDL Cholesterol 34 L (40-60) mg/dL Amylase (25-115) U/L Lipase (73-393) U/L Vitamin B12 825 (193-986) pg/mL Folate 20.1 (8.6-58.9) ng/mL Specimen Type Urine Color Urine Appearance Urine pH (5.0-9.0) Ur Specific [place] (1.005-1.030) Urine Protein (NEGATIVE) mg/dL Urine Glucose (UA) (NEGATIVE) mg/dL Urine Ketones (NEGATIVE) mg/dL Urine Occult Blood (NEGATIVE) Urine Nitrite (NEGATIVE) Urine Bilirubin (NEGATIVE) Urine Urobilinogen (0.2-1.0) E.U./dL Ur Leukocyte Esterase (NEGATIVE) Urine RBC /HPF Urine WBC /HPF Ur Epithelial Cells /LPF Urine Bacteria (NONE TO FEW) /HPF Urine Opiates Screen (NEGATIVE) Ur Buprenorphine Scrn (NEGATIVE) Ur Oxycodone Screen (NEGATIVE) Ur EDDP (Meth Metab) (NEGATIVE) Ur Barbiturates Screen (NEGATIVE) Ur Tricyclics Screen (NEGATIVE) Ur Amphetamine Screen (NEGATIVE) U Methamphetamines Scrn (NEGATIVE) Urine MDMA Screen (NEGATIVE) U Benzodiazepines Scrn (NEGATIVE) U Cocaine Metab Screen (NEGATIVE) U Marijuana (THC) Screen (NEGATIVE) Ethyl Alcohol (0.000-0.080) g/dL SARS-CoV-2 RNA (JOZEF) (NEGATIVE) SARS-CoV-2 Ag (Rapid) (NEGATIVE) Result Diagrams: 10/05/20 07:35 10/05/20 07:35 Randal Results Last 24 hrs: Microbiology 10/04/20 21:30 Influenza Type A Antigen Screen - Final Nasal, Unspecified NEGATIVE INFLUENZA A VIRUS AG REFERENCE RANGE: NEGATIVE Influenza Type B Antigen Screen - Final NEGATIVE INFLUENZA B VIRUS AG REFERENCE RANGE: NEGATIVE Sepsis Event Note - Evaluation Sepsis Screening Result: No Definite Risk - Focused Exam Vital Signs: Vital Signs Temp Temp Pulse Resp BP BP Pulse Ox 10/05/20 08:39 118/55 L 10/05/20 03:30 37.1 C 76 12 136/60 99 10/04/20 23:18 37.0 C 74 12 121/69 97 10/04/20 22:30 37.4 C 78 14 144/76 H 98 - Problem List & Annotations (1) Nausea and vomiting SNOMED Code(s): 00398694 Code(s): R11.2 - NAUSEA WITH VOMITING, UNSPECIFIED Status: Acute Priority: High Current Visit: Yes Onset Date: 10/04/20 Qualifiers: Vomiting type: unspecified Vomiting Intractability: non-intractable Qualified Code(s): R11.2 - Nausea with vomiting, unspecified Annotation/Comment:: Much improved although mild persistent nausea this morning. She is tolerating breakfast so far. Discontinue IV fluids once oral intake is tolerated. Secondary to persistent symptoms delay hospital discharge until tomorrow. Various therapeutic options were discussed with the patient in the emergency room, who did request further observation in this facility.. Nausea somewhat improved prior to placement in observation status although several episodes of emesis prior to arrival and also during initial part of the emergency room visit. (2) Peptic reflux disease SNOMED Code(s): 196413428 Code(s): K21.9 - GASTRO-ESOPHAGEAL REFLUX DISEASE WITHOUT ESOPHAGITIS Status: Chronic Priority: Medium Current Visit: Yes Annotation/Comment:: High-dose IV Pepcid and IV Protonix given his GI prophylaxis. (3) Otitis media SNOMED Code(s): 97275459 Code(s): H66.90 - OTITIS MEDIA, UNSPECIFIED, UNSPECIFIED EAR Status: Acute Priority: Medium Current Visit: Yes Onset Date: ~10/04/20 Qualifiers: Otitis media type: unspecified Chronicity: acute Qualified Code(s): H66.90 - Otitis media, unspecified, unspecified ear Annotation/Comment:: Note previous Augmentin tablet lost by emesis as above with no history of medication intolerance, etc.. IV Rocephin initiated in the emergency room as above. Augmentin therapy should be resumed after discharge from this facility with close observation by her regular provider thereafter (4) Sinusitis SNOMED Code(s): 79852743 Code(s): J32.9 - CHRONIC SINUSITIS, UNSPECIFIED Status: Acute Priority: Medium Current Visit: Yes Onset Date: ~10/04/20 Qualifiers: Sinusitis location: frontal Chronicity: acute Recurrence: non-recurrent Qualified Code(s): J01.10 - Acute frontal sinusitis, unspecified Annotation/Comment:: Possible beginning concomitant sinusitis with her otitis media. IV Rocephin initiated as above. (5) COPD (chronic obstructive pulmonary disease) SNOMED Code(s): 80048710 Code(s): J44.9 - CHRONIC OBSTRUCTIVE PULMONARY DISEASE, UNSPECIFIED Status: Chronic Priority: Medium Current Visit: Yes Qualifiers: COPD type: emphysema Emphysema type: panlobular Qualified Code(s): J43.1 - Panlobular emphysema Annotation/Comment:: No evidence of significant pneumonia or bronchitis by clinical exam and chest x-ray. IV Rocephin started in the emergency room as above. Combivent inhaler treatments in lieu of nebulizer treatments in order to reduce staff exposure during COVID-19 pandemic. (6) Diabetes mellitus SNOMED Code(s): 77453058 Code(s): E11.9 - TYPE 2 DIABETES MELLITUS WITHOUT COMPLICATIONS Status: Chronic Priority: Medium Current Visit: Yes Qualifiers: Diabetes mellitus type: type 2 Diabetes mellitus terminal superintendent insulin use: without [facility] use Diabetes mellitus complication status: without complication Qualified Code(s): E11.9 - Type 2 diabetes mellitus without complications Annotation/Comment:: Elevated random glucose level on admission. Glycosylated hemoglobin on 10/05 elevated at 6.7%. Continue to observe closely by her regular provider with weight loss in moderation advisable and dietary information to be provided at discharge. (7) Hypertension SNOMED Code(s): 04101033 Code(s): I10 - ESSENTIAL (PRIMARY) HYPERTENSION Status: Chronic Priority: Medium Current Visit: Yes Qualifiers: Hypertension type: essential hypertension Qualified Code(s): I10 - Essential (primary) hypertension Annotation/Comment:: Blood pressures are somewhat elevated in the emergency room, however improved thereafter. Continue to observe closely during this hospitalization. (8) Hyponatremia SNOMED Code(s): 13551183 Code(s): E87.1 - HYPO-OSMOLALITY AND HYPONATREMIA Status: Acute Priority: Medium Current Visit: Yes Onset Date: 10/04/20 Annotation/Comment:: Lactated Ringer's 1 L IV bolus given in the emergency room with continuation of IV fluids after admission. Sodium level improved on 10/06. (9) Mixed anxiety depressive disorder SNOMED Code(s): 347836176 Code(s): F41.8 - OTHER SPECIFIED ANXIETY DISORDERS Status: Chronic Priority: Medium Current Visit: Yes Annotation/Comment:: Stable by history with history of alcohol abuse. Normal alcohol level in the emergency room. No evidence of DTs, etc. during this hospitalization. (10) UTI (urinary tract infection) SNOMED Code(s): 45450958 Code(s): N39.0 - URINARY TRACT INFECTION, SITE NOT SPECIFIED Status: Acute Priority: High Current Visit: Yes Onset Date: 10/04/20 Qualifiers: Urinary tract infection type: acute cystitis Hematuria presence: without hematuria Qualified Code(s): N30.00 - Acute cystitis without hematuria Annotation/Comment:: Possible concomitant UTI with mild leukocytosis, however normal lactic acid level no evidence of sepsis. Urine specimen was contaminated with stool with urine to be recollected for culture and sensitivity. IV Rocephin therapy initiated as above. (11) Macrocytosis SNOMED Code(s): 439582598 Code(s): D75.89 - OTHER SPECIFIED DISEASES OF BLOOD AND BLOOD-FORMING ORGANS Status: Chronic Priority: Medium Current Visit: Yes Annotation/Comment:: Patient previously on folic acid and vitamin B12 supplements with normal vitamin B12 and folic acid levels on 10/06. Thiamine level is pending. Secondary to history of alcohol abuse the patient was started on additional thiamine on 10/06 after blood draw was conducted. (12) Dyslipidemia SNOMED Code(s): 113474679 Code(s): E78.5 - HYPERLIPIDEMIA, UNSPECIFIED Status: Chronic Priority: Medium Current Visit: Yes Onset Date: ~10/05/20 Annotation/Comment:: Mild dyslipidemia. Dietary information to be provided at discharge. Close follow-up by regular provider. (13) Hypocalcemia SNOMED Code(s): 2169966 Code(s): E83.51 - HYPOCALCEMIA Status: Acute Priority: Medium Current Visit: Yes Onset Date: 10/05/20 Annotation/Comment:: Mild. Normal on admission. Observe for now. - Problem List Review Problem List Initiated/Reviewed/Updated: Yes - My Orders Last 24 Hours: My Active Orders 10/04/20 20:00 Temazepam [Restoril] 15 mg PO DAILY@1999 PRN 10/04/20 21:38 Abdomen Series w Chest 1V [CR] Stat Abdomen Series w Chest 1V [CR] Stat H PYLORI STOOL ANTIGEN [MREF] Urgent OCCULT BLOOD DIAGNOSTIC [OP] Stat Sodium Chloride 0.9% [Saline Flush] 10 ml FLUSH ASDIRECTED PRN Blood Culture x2 Reflex Set [OM.PC] Urgent Peripheral IV Insertion Adult [OM.PC] Stat Resuscitation Status Stat 10/04/20 21:40 Isolation [COMM] Routine 10/04/20 22:15 CULTURE BLOOD [BC] Stat 10/04/20 22:35 CULTURE BLOOD [BC] Stat 10/04/20 23:18 Communication Order [RC] PER UNIT ROUTINE Communication Order [RC] PER UNIT ROUTINE Height and Weight [RC] DAILY Intake and Output Strict [RC] ,18 Oxygen Therapy [RC] PRN Pulse Oximetry [RC] .PRN Up With Assistance [RC] 08 Vital Signs [RC] Q4HR CULTURE URINE [RM] Stat Acetaminophen [TylenoL] 650 mg PO Q4H PRN Ondansetron [Zofran] 4 mg IVPUSH Q6H PRN GM Immunization Reflex [OM.PC] Click to Edit 10/04/20 23:30 Lactated Ringers [Ringers, Lactated] 1,000 ml IV ASDIRECTED 10/05/20 Breakfast Heart Healthy Diet [DIET] Levothyroxine 150 mcg PO ACBREAKFAST 10/05/20 07:35 VIT. B1, WHOLE BLOOD [REF] Routine 10/05/20 08:00 Aspirin [Halfprin] 81 mg PO DAILY Cyanocobalamin (Vitamin B12) [Vitamin B12] 500 mcg PO DAILY Docusate Sodium [Colace] 200 mg PO BID Loratadine [Claritin] 10 mg PO DAILY Meloxicam [Mobic] 15 mg PO DAILY Propranolol [Inderal LA] 120 mg PO DAILY Sodium Chloride 0.9% [Saline Flush] 10 ml FLUSH Q12HR lisinopriL [Prinivil] 40 mg PO DAILY 10/05/20 09:00 Pantoprazole [ProTONIX IV] 40 mg IVPUSH Q12H 10/05/20 09:45 Folic Acid 1 mg PO DAILY 10/05/20 11:00 cefTRIAXone [Rocephin] 1 gm Sodium Chloride 0.9% [Normal Saline] 100 ml IV Q12H 10/05/20 21:00 Famotidine [Pepcid] 20 mg IVPUSH Q12H - Assessment Assessment:: As above - Plan Plan:: As above. Extensive precautions were given to the patient, who is in agreement with the treatment plan. electric power superintendent physician assumes care in the a.m. with patient likely to be discharged to home tomorrow.
[2020-10-05] MEDS ORDERED: Albuterol/Ipratropium 4 GM Inhalation Spray INH PRN (10:00)
[2020-10-05] MEDS: cefTRIAXone 1 GM in Sodium Chloride 0.9% 100 ML IV SCH ×2 (12:04→23:49)
[2020-10-05] MEDS: Pseudoephedrine 30 MG Tab PO SCH ×3 (12:05→20:08)
[2020-10-05] MEDS: guaiFENesin 600 MG Tab.ER PO SCH ×2 (12:05→17:41)
[2020-10-05] MEDS: Albuterol/Ipratropium 4 GM Inhalation Spray INH SCH ×3 (12:06→20:15)
[2020-10-05] MEDS: Folic Acid 1 MG Tab PO SCH (12:13)
[2020-10-05] MEDS ORDERED: Thiamine 100 MG Tab PO SCH (20:00)
[2020-10-05] MEDS: Famotidine 20 MG/2 ML SDV IVPUSH SCH (20:09)
[2020-10-06] MEDS: Albuterol/Ipratropium 4 GM Inhalation Spray INH SCH ×3 (07:20→16:47)
[2020-10-06] MEDS: Folic Acid 1 MG Tab PO SCH (07:22)
[2020-10-06] MEDS: Acetaminophen 325 MG Tab PO PRN (07:22)
[2020-10-06] MEDS: Propranolol 60 MG Cap.ER PO SCH (07:22)
[2020-10-06] MEDS: Lisinopril 20 MG Tab PO SCH (07:22)
[2020-10-06] MEDS: Docusate Sodium 100 MG Cap PO SCH (07:23)
[2020-10-06] MEDS: Cyanocobalamin (Vitamin B12) 250 MCG Tab PO SCH (07:23)
[2020-10-06] MEDS: Aspirin 81 MG Tab.EC PO SCH (07:23)
[2020-10-06] MEDS: guaiFENesin 600 MG Tab.ER PO SCH (07:23)
[2020-10-06] MEDS: Loratadine 10 MG Tab PO SCH (07:23)
[2020-10-06] MEDS: Levothyroxine 150 MCG Tab PO SCH (07:23)
[2020-10-06] MEDS: Pseudoephedrine 30 MG Tab PO SCH ×3 (07:23→16:47)
[2020-10-06 08:10] LABS: CHLORIDE,CL 103 mmol/L (98-107); SODIUM,NA 137 mmol/L (136-145)
[2020-10-06] MEDS: Famotidine 20 MG/2 ML SDV IVPUSH SCH (08:34)
[2020-10-06] MEDS: Pantoprazole 40 MG Vial IVPUSH SCH (08:36)
[2020-10-06] MEDS: Sodium Chloride 0.9% 10 ML Syringe FLUSH SCH (08:42)
[2020-10-06] MEDS: Sodium Chloride 0.9% 10 ML Syringe FLUSH PRN (08:43)
[2020-10-06] MEDS: cefTRIAXone 1 GM in Sodium Chloride 0.9% 100 ML IV SCH (10:55)
--- NOTE | 2020-10-06 13:54 | PCM.DCSUM1 ---
Discharge Summary - Hospital Course Brief History: Patient admitted for further evaluation of nausea/emesis. Questionable UTI. Otitis complaints. Diagnosis: Stroke: No - Discharge Data Discharge Date: 10/06/20 Discharge Disposition: Home, Self-Care 01 Condition: Good - Referral to Home Health Primary Care Physician: PCP None - Discharge Diagnosis/Problem(s) (1) Nausea and vomiting SNOMED Code(s): 68771667 ICD Code: R11.2 - NAUSEA WITH VOMITING, UNSPECIFIED Status: Acute Priority: High Current Visit: Yes Onset Date: 10/04/20 Problem Details: H ighly suspect that this was induced by patient's taking of Augmentin. She had similar reaction in past when she took Augmentin. Cannot rule out viral gastroenteritis component. Resolved at this time. Qualifiers: Vomiting type: unspecified Vomiting Intractability: non-intractable Qualified Code(s): R11.2 - Nausea with vomiting, unspecified (2) Otitis media SNOMED Code(s): 58229192 ICD Code: H66.90 - OTITIS MEDIA, UNSPECIFIED, UNSPECIFIED EAR Status: Acute Priority: Medium Current Visit: Yes Onset Date: ~10/04/20 Problem Details: Patient has bilateral otitis media with fluid noted behind TMS and some thickening of TMs noted. No redness. Suspect viral in nature. Will avoid restart of Augmentin at this time given that she recalls similar vomiting with past prescription of Augmentin. Follow up with PCP. Did receive three day course of Rocephin during stay which should provide coverage for potential of bacterial OM. Qualifiers: Otitis media type: unspecified Chronicity: acute Qualified Code(s): H66.90 - Otitis media, unspecified, unspecified ear (3) Sinusitis SNOMED Code(s): 61962855 ICD Code: J32.9 - CHRONIC SINUSITIS, UNSPECIFIED Status: Acute Priority: Medium Current Visit: Yes Onset Date: ~10/04/20 Problem Details: Possible beginning concomitant sinusitis with her otitis media. IV Rocephin initiated as above however there is good chance of viral etiology. Qualifiers: Sinusitis location: frontal Chronicity: acute Recurrence: non-recurrent Qualified Code(s): J01.10 - Acute frontal sinusitis, unspecified (4) Hypocalcemia SNOMED Code(s): 3883060 ICD Code: E83.51 - HYPOCALCEMIA Status: Chronic Priority: Medium Current Visit: Yes Onset Date: 10/05/20 Problem Details: Mild. Normal on admission. Follow up with PCP (5) Hyponatremia SNOMED Code(s): 46516763 ICD Code: E87.1 - HYPO-OSMOLALITY AND HYPONATREMIA Status: Acute Priority: Medium Current Visit: Yes Onset Date: 10/04/20 Problem Details: Lactated Ringer's 1 L IV bolus given in the emergency room with continuation of IV fluids after admission. Sodium level improved on 10/06. (6) UTI (urinary tract infection) SNOMED Code(s): 87609383 ICD Code: N39.0 - URINARY TRACT INFECTION, SITE NOT SPECIFIED Status: Acute Priority: High Current Visit: Yes Onset Date: 10/04/20 Problem Details: Possible concomitant UTI with mild leukocytosis, however normal lactic acid level no evidence of sepsis. Urine specimen was contaminated with stool with urine to be recollected for culture and sensitivity. No identified UTI per culture. Qualifiers: Urinary tract infection type: acute cystitis Hematuria presence: without hematuria Qualified Code(s): N30.00 - Acute cystitis without hematuria (7) COPD (chronic obstructive pulmonary disease) SNOMED Code(s): 69743445 ICD Code: J44.9 - CHRONIC OBSTRUCTIVE PULMONARY DISEASE, UNSPECIFIED Status: Chronic Priority: Medium Current Visit: Yes Problem Details: No evidence of significant pneumonia or bronchitis by clinical exam and chest x- ray. IV Rocephin started in the emergency room as above. Combivent inhaler treatments in lieu of nebulizer treatments in order to reduce staff exposure during COVID-19 pandemic. Qualifiers: COPD type: emphysema Emphysema type: panlobular Qualified Code(s): J43.1 - Panlobular emphysema (8) Diabetes mellitus SNOMED Code(s): 02134102 ICD Code: E11.9 - TYPE 2 DIABETES MELLITUS WITHOUT COMPLICATIONS Status: Chronic Priority: Medium Current Visit: Yes Problem Details: Elevated random glucose level on admission. Glycosylated hemoglobin on 10/05 elevated at 6.7%. Continue to observe closely by her regular provider with weight loss in moderation advisable and dietary information to be provided at discharge. Qualifiers: Diabetes mellitus type: type 2 Diabetes mellitus rat exterminator insulin use: without rat exterminator use Diabetes mellitus complication status: without complication Qualified Code(s): E11.9 - Type 2 diabetes mellitus without complications (9) Dyslipidemia SNOMED Code(s): 047700661 ICD Code: E78.5 - HYPERLIPIDEMIA, UNSPECIFIED Status: Chronic Priority: Medium Current Visit: Yes Onset Date: ~10/05/20 Problem Details: Mild dyslipidemia. Dietary information to be provided at discharge. Close follow-up by regular provider. (10) Macrocytosis SNOMED Code(s): 580175007 ICD Code: D75.89 - OTHER SPECIFIED DISEASES OF BLOOD AND BLOOD-FORMING ORGANS Status: Chronic Priority: Medium Current Visit: Yes Problem Details: Patient previously on folic acid and vitamin B12 supplements with normal vitamin B12 and folic acid levels on 10/06. Thiamine level is pending. Secondary to history of alcohol abuse the patient was started on additional thiamine on 10/06 after blood draw was conducted. (11) Mixed anxiety depressive disorder SNOMED Code(s): 460321411 ICD Code: F41.8 - OTHER SPECIFIED ANXIETY DISORDERS Status: Chronic Priority: Medium Current Visit: Yes Problem Details: Stable by history with history of alcohol abuse. Normal alcohol level in the emergency room. No evidence of DTs, etc. during this hospitalization. (12) Peptic reflux disease SNOMED Code(s): 062131269 ICD Code: K21.9 - GASTRO-ESOPHAGEAL REFLUX DISEASE WITHOUT ESOPHAGITIS Status: Chronic Priority: Medium Current Visit: Yes Problem Details: High- dose IV Pepcid and IV Protonix given as GI prophylaxis. Suspect exacerbated by patient's daily ETOH intake/diet. Dietary changes recommended. Follow up with PCP. (13) Hypertension SNOMED Code(s): 45514297 ICD Code: I10 - ESSENTIAL (PRIMARY) HYPERTENSION Status: Chronic Priority: Medium Current Visit: Yes Problem Details: Overall stable Qualifiers: Hypertension type: essential hypertension Qualified Code(s): I10 - Essential (primary) hypertension (14) ETOH abuse SNOMED Code(s): 06933772 ICD Code: F10.10 - ALCOHOL ABUSE, UNCOMPLICATED Status: Chronic Priority: Medium Current Visit: Yes Problem Details: Patient admits to drinking approximately 8 alcoholic beverages daily, usually wine coolers. No evidence of DTs noted during stay. Advised to re-evaluate drinking habits and daily amounts of alcohol. - Patient Summary/Data Hospital Course: Unremarkable hospital course. Nausea and emesis improved. Still complained of bilateral ear discomfort and ears feeling plugged/uncomfortable. Symptoms started 4 days ago. Good chance that this is due to acute URI that is viral in etiology. Nausea and vomiting could be also be from same viral illness, however could also be due to Augmentin as discussed above. Patient is feeling better. Stable. No new complaints. OK to be discharged home. Has had three day course of IV Rocephin which provides good coverage for Otitis media. No additional oral antibiotics prescribed at this time due to suspicion that complaint is likely viral in nature. Fluid noted behind TMS/no redness. Dietary/lifestyle changes encouraged prior to discharge. To follow up as needed if symptoms do not improve. Have ears rechecked next week if still feeling plugged. - Patient Instructions Diet: Limited Carb (limited carb/anti-inflammatory diet) Activity: As Tolerated Notify Provider of: Fever, Increased Pain, Swelling and Redness, Nausea and/or Vomiting Other/Special Instructions: Take Meclizine 1 tab every 6 hours as needed for dizziness. Get your ears rechecked Thursday or Thursday if you do not feel any improvement by then. Follow up as needed in ER if you have sudden worsening problems. Highly recommend lifestyle reboot--re-evaluate you alcohol use and relationship with alcohol. It is not good for your system, your brain, and you diabetes. Recommend lower carb whole foods diet. Avoid processed/package food. Stick to meat/fish and veggies. Avoid anything 'white' that has flour/rice/grains in it. Decreasing alcohol and changing your diet will help your diabetes as well as your reflux/heartburn symptoms. You can try Sudafed to help with your ears. You were on it here and your blood pressures were good. Be aware however that Sudafed can cause your blood pressure to rise so be careful to not take any extra. It is recommended that you check your own blood pressures at home so you can keep close track of them. - Discharge Plan *PRESCRIPTION DRUG MONITORING PROGRAM REVIEWED*: Not Applicable *COPY OF PRESCRIPTION DRUG MONITORING REPORT IN PATIENT KETTY: Not Applicable Prescriptions/Med Rec: Meclizine [Antivert] 25 mg PO Q6H PRN #30 tab PRN Reason: Dizziness Thiamine [Vitamin B-1] 100 mg PO BEDTIME #30 tablet Home Medications: Home Meds Aspirin [Halfprin] 81 mg PO DAILY 03/20/19 [History] Fish Oil/[place]-3 Fatty Acids [Fish Oil 1,000 MG] 1 cap PO DAILY 03/20/19 [History] Levothyroxine 150 mcg PO ACBREAKFAST 03/20/19 [History] Propranolol HCl [Inderal Xl] 1 cap PO DAILY 03/20/19 [History] lisinopriL [Prinivil] 40 mg PO DAILY 03/20/19 [History] Cyanocobalamin (Vitamin B-12) [B-12] 500 mcg PO DAILY 10/04/20 [History] Docusate Sodium [Colace] 2 cap PO BID 10/04/20 [History] Famotidine 20 mg PO BID 10/04/20 [History] Fish Oil/[place]-3 Fatty Acids [Fish Oil 1,000 MG] 1 gm PO DAILY 10/04/20 [History] Folic Acid 0.8 mg PO DAILY 10/04/20 [History] Loratadine 10 mg PO DAILY 10/04/20 [History] Meloxicam 15 mg PO DAILY 10/04/20 [History] Albuterol/Ipratropium [Combivent Respimat] 1 dose INH Q4H PRN #1 inhaler 10/06/20 [Rx] Meclizine [Antivert] 25 mg PO Q6H PRN #30 tab 10/06/20 [Rx] Pseudoephedrine [Sudogest] 30 mg PO QID tablet 10/06/20 [Rx] Thiamine [Vitamin B-1] 100 mg PO BEDTIME #30 tablet 10/06/20 [Rx] guaiFENesin [Mucinex] 1,200 mg PO BID tab.er 10/06/20 [Rx] Forms: ED Department Discharge Referrals: PCP,None [Primary Care Provider] - - Discharge Summary/Plan Comment DC Time >30 min.: No - General Info Date of Service: 10/06/20 Admission Dx/Problem (Free Text: 1. Nausea and vomiting 2. Right-sided otitis media 3. Sinusitis Subjective Update: Patient is feeling better but still has fullness/discomfort in ears. Lightheaded sometimes, can be triggered by head rotation. Functional Status: Reports: Pain Controlled, Tolerating Diet, Ambulating, Urinating. Denies: New Symptoms - Review of Systems General: Reports: No Symptoms HEENT: Reports: Ear Pain, Sinus Congestion. Denies: Dysphasia, Eye Pain, Headaches, Post Nasal Drip, Sore Throat, Rhinitis, Visual Changes Pulmonary: Reports: Cough (no acute changes/has COPD). Denies: Pleuritic Chest Pain, Sputum Cardiovascular: Denies: Chest Pain, Palpitations Gastrointestinal: Denies: Abdominal Pain, Diarrhea, Nausea, Vomiting Genitourinary: Denies: Dysuria, Frequency, Hematuria, Flank Pain Musculoskeletal: Reports: Other (no acute changes from baseline) Neurological: Reports: Dizziness. Denies: Confusion, Headache, Numbness, Paresthesia, Tingling, Trouble Speaking, Weakness, Change in Speech Psychiatric: Reports: No Symptoms - Patient Data Vitals - Most Recent: Last Vital Signs Temp 36.1 C 10/06/20 07:33 Pulse 62 10/06/20 07:33 Resp 16 10/06/20 07:33 BP 140/80 10/06/20 07:33 Pulse Ox 97 10/06/20 07:33 Weight - Most Recent: 119.658 kg I&O - Last 24 hours: Intake & Output 10/05/20 10/06/20 10/06/20 22:59 06:59 14:59 Intake Total 3660 900 1170 Output Total 156 862 4764 Balance 2760 500 -1030 Lab Results - Last 24 hrs: Laboratory Results - last 24 hr 10/06/20 10/06/20 Range/Units 07:25 07:25 WBC 6.5 (4.0-10.2) K/uL RBC 3.57 L (3.77-5.09) M/uL Hgb 12.8 (11.7-15.5) g/dL Hct 37.1 (34.0-46.0) % MCV 103.9 H (84.0-98.0) fL MCH 35.9 H (28.2-33.3) pg MCHC 34.5 (31.7-36.0) g/dL RDW 12.4 (11.2-14.1) % Plt Count 156 (150-350) K/uL Neut % (Auto) 58.3 (45.0-80.0) % Lymph % (Auto) 30.5 (10.0-50.0) % [place] % (Auto) 7.7 (2.0-14.0) % Eos % (Auto) 3.2 (0.0-5.0) % Baso % (Auto) 0.3 (0.0-2.0) % Neut # (Auto) 3.79 (1.40-7.00) K/uL Lymph # (Auto) 1.98 (0.50-3.50) K/uL [place] # (Auto) 0.50 (0.00-1.00) K/uL Eos # (Auto) 0.21 (0.00-0.50) K/uL Baso # (Auto) 0.02 (0.00-0.20) K/uL Sodium 137 (136-145) mmol/L Potassium 4.1 (3.5-5.1) mmol/L Chloride 103 (98-107) mmol/L Carbon Dioxide 25.5 (21.0-32.0) mmol/L BUN 10 (7-18) mg/dL Creatinine 0.73 (0.51-1.17) mg/dL Est Cr Clr Drug Dosing 72.82 mL/min Estimated GFR (MDRD) > 60 mL/min Glucose 140 H (70-99) mg/dL Calcium 8.2 L (8.5-10.1) mg/dL Troponin I 0.000 (0.000-0.056) ng/mL NT-Pro-B Natriuret Pep 152 H (0-125) pg/mL NIRAJ Results - Last 24 hrs: Microbiology 10/06/20 11:00 Stool Occult Blood (NIRAJ) - Final Stool / Feces NEGATIVE OCCULT BLOOD REFERENCE RANGE: NEGATIVE 10/05/20 00:16 Urine Culture - Final Urine, Clean Catch 10/04/20 22:35 Aerobic Blood Culture - Preliminary Blood - Venous - Lab Draw NO GROWTH AFTER 1 DAY Anaerobic Blood Culture - Preliminary NO GROWTH AFTER 1 DAY 10/04/20 22:15 Aerobic Blood Culture - Preliminary Blood - Venous NO GROWTH AFTER 1 DAY Anaerobic Blood Culture - Preliminary NO GROWTH AFTER 1 DAY Med Orders - Current: Current Medications Acetaminophen (Acetaminophen 325 Mg Tab) 650 mg PO Q4H PRN PRN Reason: Pain Last Admin: 10/06/20 07:22 Dose: 650 mg Documented by: Albuterol/Ipratropium (Albuterol/Ipratropium 4 Gm Inhalation [place]) 0 gm INH QID KAVON Last Admin: 10/06/20 12:18 Dose: 2 puff Documented by: Albuterol/Ipratropium (Albuterol/Ipratropium 4 Gm Inhalation [place]) 0 gm INH Q4H PRN PRN Reason: Dyspnea Last Admin: 10/05/20 17:47 Dose: 2 puff Documented by: Aspirin (Aspirin 81 Mg Tab.Ec) 81 mg PO DAILY [facility] Last Admin: 10/06/20 07:23 Dose: 81 mg Documented by: Cyanocobalamin (Cyanocobalamin (Vitamin B12) 250 Mcg Tab) 500 mcg PO DAILY [facility] Last Admin: 10/06/20 07:23 Dose: 500 mcg Documented by: Docusate Sodium (Docusate Sodium 100 Mg Cap) 200 mg PO BID [facility] Last Admin: 10/06/20 07:23 Dose: 200 mg Documented by: Famotidine (Famotidine 20 Mg/2 Ml Sdv) 20 mg IVPUSH Q12H [facility] Last Admin: 10/06/20 08:34 Dose: 20 mg Documented by: Folic Acid (Folic Acid 1 Mg Tab) 1 mg PO DAILY [facility] Last Admin: 10/06/20 07:22 Dose: 1 mg Documented by: Guaifenesin (Guaifenesin 600 Mg Tab.Er) 1,200 mg PO BID [facility] Last Admin: 10/06/20 07:23 Dose: 1,200 mg Documented by: Ceftriaxone Sodium 1 gm/ (Sodium Chloride) 100 mls @ 200 mls/hr IV Q12H [facility] Last Admin: 10/06/20 10:55 Dose: 200 mls/hr Documented by: Levothyroxine Sodium (Levothyroxine 150 Mcg Tab) 150 mcg PO ACBREAKFAST [facility] Last Admin: 10/06/20 07:23 Dose: 150 mcg Documented by: Lisinopril (Lisinopril 20 Mg Tab) 40 mg PO DAILY [facility] Last Admin: 10/06/20 07:22 Dose: 40 mg Documented by: Loratadine (Loratadine 10 Mg Tab) 10 mg PO DAILY [facility] Last Admin: 10/06/20 07:23 Dose: 10 mg Documented by: Meloxicam (Meloxicam 15 Mg Tab) 15 mg PO DAILY [facility] Last Admin: 10/06/20 07:29 Dose: 15 mg Documented by: Ondansetron HCl (Ondansetron 4 Mg/2 Ml Sdv) 4 mg IVPUSH Q6H PRN PRN Reason: Nausea/Vomiting Last Admin: 10/05/20 03:28 Dose: 4 mg Documented by: Pantoprazole Sodium (Pantoprazole 40 Mg Vial) 40 mg IVPUSH Q12H [facility] Last Admin: 10/06/20 08:36 Dose: 40 mg Documented by: Propranolol HCl (Propranolol 60 Mg Cap.Er) 120 mg PO DAILY [facility] Last Admin: 10/06/20 07:22 Dose: 120 mg Documented by: Pseudoephedrine HCl (Pseudoephedrine 30 Mg Tab) 30 mg PO QID [facility] Last Admin: 10/06/20 12:18 Dose: 30 mg Documented by: Sodium Chloride (Sodium Chloride 0.9% 10 Ml Syringe) 10 ml FLUSH ASDIRECTED PRN PRN Reason: Keep Vein Open Last Admin: 10/06/20 08:43 Dose: 10 ml Documented by: Sodium Chloride (Sodium Chloride 0.9% 10 Ml Syringe) 10 ml FLUSH Q12HR [facility] Last Admin: 10/06/20 08:42 Dose: 10 ml Documented by: Temazepam (Temazepam 15 Mg Cap) 15 mg PO DAILY@2000 PRN PRN Reason: Insomnia Thiamine HCl (Thiamine 100 Mg Tab) 100 mg PO BEDTIME [facility] Last Admin: 10/05/20 20:08 Dose: 100 mg Documented by: Discontinued Medications Ceftriaxone Sodium (Ceftriaxone 2 Gm Vial) 2 gm IVPUSH ONETIME ONE Stop: 10/04/20 21:44 Last Admin: 10/04/20 22:26 Dose: 2 gm Documented by: Famotidine (Famotidine 20 Mg/2 Ml Sdv) 40 mg IVPUSH ONETIME ONE Stop: 10/04/20 21:39 Last Admin: 10/04/20 22:15 Dose: 40 mg Documented by: Lactated Ringer's (Ringers, Lactated) 1,000 mls @ 999 mls/hr IV .BOLUS ONE Stop: 10/04/20 22:38 Last Admin: 10/04/20 22:45 Dose: 999 mls/hr Documented by: Lactated Ringer's (Ringers, Lactated) 1,000 mls @ 100 mls/hr IV ASDIRECTED [facility] Last Admin: 10/05/20 00:13 Dose: 100 mls/hr Documented by: Non-Formulary Medication (Folic Acid [Folic Acid]) 0.8 mg PO DAILY [facility] Last Admin: 10/05/20 12:36 Dose: Not Given Documented by: Ondansetron HCl (Ondansetron 4 Mg/2 Ml Sdv) 4 mg IVPUSH ONETIME ONE Stop: 10/04/20 21:39 Last Admin: 10/04/20 22:10 Dose: 4 mg Documented by: Ondansetron HCl (Ondansetron 4 Mg Tab.Dis) 4 mg PO ONETIME ONE Stop: 10/04/20 22:03 Last Admin: 10/04/20 22:20 Dose: Not Given Documented by: Pantoprazole Sodium (Pantoprazole 40 Mg Vial) 40 mg IVPUSH ONETIME ONE Stop: 10/04/20 21:39 Last Admin: 10/04/20 22:12 Dose: 40 mg Documented by: - Exam General: Reports: Alert, Oriented, Cooperative, No Acute Distress HEENT: Reports: Pupils Equal, Pupils Reactive, EOMI, Mucous Membr. Moist/[place], Other (Bilateral TMS show fluid behind TMs, no erythema) Neck: Reports: Supple Lungs: Reports: Clear to Auscultation, Normal Respiratory Effort Cardiovascular: Reports: Regular Rate, Regular Rhythm GI/Abdominal Exam: Normal Bowel Sounds, Soft, Non-Tender, No Distention Back Exam: Denies: CVA Tenderness (L), CVA Tenderness (R), Muscle Spasm Extremities: Non-Tender, Normal Capillary Refill Skin: Reports: Warm, Dry Neurological: Reports: No New Focal Deficit Psy/Mental Status: Reports: Alert, Normal Affect, Normal Mood
[2020-10-08] MEDS ORDERED: Sodium Chloride 0.9% 10 ML Syringe FLUSH PRN (18:41)
== END 2020-10-06 16:57 | disposition home or self-care (01) ==
LOC: LL.ED 21:13 → LL.MS 23:00
PROVIDERS: ADMIT Family Medicine; ATTEND Family Medicine
DX: R11.2 Nausea with vomiting, unspecified (principal); H66.91 Otitis media, unspecified, right ear; J01.10 Acute frontal sinusitis, unspecified; N30.00 Acute cystitis without hematuria; E83.51 Hypocalcemia; E87.1 Hypo-osmolality and hyponatremia; J43.1 Panlobular emphysema; E11.9 Type 2 diabetes mellitus without complications; E78.5 Hyperlipidemia, unspecified; D75.89 Other specified diseases of blood and blood-forming organs; F41.8 Other specified anxiety disorders; K21.9 Gastro-esophageal reflux disease without esophagitis; I10 Essential (primary) hypertension; F10.10 Alcohol abuse, uncomplicated; F17.210 Nicotine dependence, cigarettes, uncomplicated; I25.10 Atherosclerotic heart disease of native coronary artery without angina pectoris; Z79.82 Long term (current) use of aspirin; Z79.890 Hormone replacement therapy; Z79.899 Other long term (current) drug therapy; Z20.822 Contact with and (suspected) exposure to COVID-19; Z98.890 Other specified postprocedural states
CPT/HCPCS: 36415; 74022; 80048; 80053; 80061; 80305-QW; 80307; 81001; 82150; 82272; 82607; 82746; 83036; 83605; 83690; 83735; 83880; 84425; 84484; 84550; 85025; 85610; 87040; 87086; 87338; 87426; 87804; 94640; 96365; 96374; 96375; 96376; 99217; 99220; 99225; 99285-25; A9270-GY; C9113; G0378; J0696; J2405; J3490; J7120; U0002

== ENCOUNTER 2020-10-08 18:36 | Emergency (ER) | payer BC ==
--- NOTE | 2020-10-08 18:53 | EDM.PDOC ---
ED HPI GENERAL MEDICAL PROBLEM - General Chief Complaint: General Stated Complaint: dizzy Time Seen by Provider: 10/08/20 18:44 Source of Information: Reports: Patient History Limitations: Reports: No Limitations - History of Present Illness INITIAL COMMENTS - FREE TEXT/NARRATIVE: Patient comes to us with complaint of continued vertigo, nausea, emesis. Recent URI, developed fluid in both ears. Admitted observation late last week and received three days of Rocephin IV in addition to Zofran. Was improving after discharge but had sudden worsening vertigo this evening prior to coming over. Vomits during attacks of dizziness. Left ear pain has improved, "pops" more. Right ear still pretty plugged. No fevers. No chest pain/cough/sore throat/bowel changes/focal neuro changes. - Related Data Allergies Allergy/AdvReac Type Severity Reaction Status Date / Time clavulanic acid AdvReac Vomiting Verified 10/08/20 19:25 [From Augmentin] Home Meds: Home Meds Aspirin [Halfprin] 81 mg PO DAILY 03/20/19 [History] Fish Oil/[place]-3 Fatty Acids [Fish Oil 1,000 MG] 1 cap PO DAILY 03/20/19 [Histo ry] Levothyroxine 150 mcg PO ACBREAKFAST 03/20/19 [History] Propranolol HCl [Inderal Xl] 1 cap PO DAILY 03/20/19 [History] lisinopriL [Prinivil] 40 mg PO DAILY 03/20/19 [History] Cyanocobalamin (Vitamin B-12) [B-12] 500 mcg PO DAILY 10/04/20 [History] Docusate Sodium [Colace] 2 cap PO BID 10/04/20 [History] Famotidine 20 mg PO BID 10/04/20 [History] Fish Oil/[place]-3 Fatty Acids [Fish Oil 1,000 MG] 1 gm PO DAILY 10/04/20 [History] Folic Acid 0.8 mg PO DAILY 10/04/20 [History] Loratadine 10 mg PO DAILY 10/04/20 [History] Meloxicam 15 mg PO DAILY 10/04/20 [History] Albuterol/Ipratropium [Combivent Respimat] 1 dose INH Q4H PRN #1 inhaler 10/06/20 [Rx] Meclizine [Antivert] 25 mg PO Q6H PRN #30 tab 10/06/20 [Rx] Pseudoephedrine [Sudogest] 30 mg PO QID tablet 10/06/20 [Rx] Thiamine [Vitamin B-1] 100 mg PO BEDTIME #30 tablet 10/06/20 [Rx] guaiFENesin [Mucinex] 1,200 mg PO BID tab.er 10/06/20 [Rx] Past Medical History HEENT History: Reports: Allergic Rhinitis, Impaired Vision, Sinusitis, Other (See Below) Other HEENT History: Patient wears glasses. Cardiovascular History: Reports: CAD, Hypertension, Other (See Below) Other Cardiovascular History: Possible coronary artery disease by chest x-ray. The patient does not know her cholesterol status with history of fatty liver as below. Respiratory History: Reports: Bronchitis, Recurrent, COPD, Intubation, Previous, Pneumonia, Recurrent, Pulmonary Fibrosis Gastrointestinal History: Reports: Diverticulosis, Fatty Liver, GERD, Other (See Below) Other Gastrointestinal History: LFTs elevation either secondary to fatty liver or alcohol use. Genitourinary History: Reports: Renal Calculus, Urinary Incontinence, Other (See Below) Other Genitourinary History: Left-sided nephrolithiasis with benign right renal cyst by abdominal ultrasound on 11/11/2016. [employer] History: Reports: Dysfunctional Uterine Bleeding, Fibroids, Therapeutic Other [employer]ATOR History: Menopause at about age 44 with hysterectomy as below. Full term without complications during pregnancies or deliveries, although C-sections x3 required secondary to small pelvis. Elective SAB during first trimester. 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 Appendicitis on 03/20/2019. Neurological History: Reports: Headaches, Chronic, Other (See Below) Other Neuro History: Sinus headaches. Psychiatric History: Reports: Addiction, Anxiety, Depression, Other (See Below) Other Psychiatric History: EtOH abuse. Endocrine/Metabolic History: Reports: Diabetes, Type II, Hypomagnesemia, Hypothyroidism, Obesity/BMI 30+, Other (See Below) Other Endocrine/Metabolic History: Hypoalbuminemia. Hyponatremia. Hematologic History: Reports: Anemia, Other (See Below) Other Hematologic History: Anemia as a child. Macrocytosis possibly secondary to alcohol abuse. Oncologic (Cancer) History: Reports: None Dermatologic History: Reports: Eczema - Infectious Disease History Infectious Disease History: Reports: Chicken Pox - Past Surgical History Head Surgeries/Procedures: Reports: None HEENT Surgical History: Reports: Oral Surgery, Other (See Below) Other HEENT Surgeries/Procedures: Multiple teeth extractions. Cardiovascular Surgical History: Reports: None GI Surgical History: Reports: Appendectomy, Other (See Below) Other GI Surgeries/Procedures: Appendectomy on 03/20/2019. Female Surgical History: Reports: D&C, Dilitation & Evacuation, Hysterectomy, Salpingo-Oophorectomy, Other (See Below) Other Female Surgeries/Procedures: Complete hysterectomy, including bilateral salpingo-oophorectomy secondary to uterine fibroids at about age 49. Bilateral tubal ligation at age 26. Intentional/elective SAB during first trimester as above. Endocrine Surgical History: Reports: None Neurological Surgical History: Reports: None Musculoskeletal Surgical History: Reports: None Oncologic Surgical History: Reports: None Dermatological Surgical History: Reports: None - Past Imaging History Past Imaging History: Reports: CAT Scan (CT of the abdomen and pelvis with contrast positive for appendicitis on 03/20/2019. CT of the chest on 02/27/2010. CT of the head on 09/19/2008.), Mammogram (Last on 01/12/2020.), Ultrasound (Pelvic on 04/30/2017 and 11/04/2016. Complete abdominal ultrasound on 11/11/2016, 01/10/2014 and 10/09/2010.) Social & Family History - Family History HEENT: Reports: None Cardiac: Reports: CAD, [place], Other (See Below) Other Cardiac Family History: Maternal grandmother with recurrent MIs fatal in her 60s. Respiratory: Reports: Sleep Apnea, Other (See Below) Other Respiratory Family Hisory: Daughter with sleep apnea. GI: Reports: None : Reports: None OBGYN: Reports: None Musculoskeletal: Reports: None Neurological: Reports: Alzheimers Disease, Dementia, Other (See Below) Other Neurological Family History: Daughter with migraine headaches. Maternal grandfather with organic brain syndrome. Psychiatric: Reports: Anxiety, Depression, Psych Hospitalization(s), Suicide Attempt Other Psychiatric Family History: Father with history of alcohol abuse. Children x3 with anxiety and depression disorder. Daughter with history of suicide attempt requiring hospitalization. Endocrine/Metabolic: Reports: Diabetes, type II, Hypothyroidism, IDDM, Other (See Below) Other Endocrine/Metabolic Family History: Maternal aunt with AODM. Mother with IDDM and hypothyroidism. Hematologic: Reports: None Immunologic: Reports: None Dermatologic: Reports: None Oncologic: Reports: Breast, Other (See Below) Other Oncologic Family History: Mother with history of breast cancer at about age 60. - Caffeine Use Caffeine Use: Reports: Coffee, Soda - Living Situation & Occupation Living situation: Reports: (1979, 3 children), with Family (, 1 daughter) Occupation: Other (Farm ) ED ROS GENERAL - Review of Systems Review Of Systems: See Below Constitutional: Reports: Malaise, Diaphoresis (before vomiting), Decreased Appetite. Denies: Fever, Chills, Weakness, Fatigue, Night Sweats HEENT: Reports: Ear Pain, Hearing Loss (ears feel plugged), Sinus Problem. Denies: Dental Pain, Eye Discharge, Eye Pain, Nose Pain, Throat Pain, Throat Swelling, Vision Change Respiratory: Reports: Shortness of Breath (chronic/COPD/no acute change), Wheezing (chronic COPD). Denies: Pleuritic Chest Pain, Cough, Sputum, Hemoptysis Cardiovascular: Reports: Lightheadedness. Denies: Chest Pain, Palpitations, Syncope GI/Abdominal: Reports: Decreased Appetite, Nausea, Vomiting. Denies: Abdominal Pain, Diarrhea, Difficulty Swallowing, Distension, Hematemesis, Hematochezia : Reports: No Symptoms Musculoskeletal: Reports: Other (no acute changes from baseline) Skin: Reports: No Symptoms Neurological: Reports: Dizziness. Denies: Headache, Numbness, Paresthesia, Seizure, Syncope, Trouble Speaking, Difficulty Walking, Weakness, Change in Speech Psychiatric: Reports: No Symptoms Hematologic/Lymphatic: Reports: No Symptoms Immunologic: Reports: No Symptoms ED EXAM, GENERAL - Physical Exam Exam: See Below Exam Limited By: No Limitations General Appearance: Alert, Obese, Other (anxious/uncomfortable but no acute significant distress) Eye Exam: Bilateral Eye: EOMI, PERRL, Other (no triggered nystagmus) Ears: Normal External Exam, Other (right TM has clear fluid behind TM, left TM has small scab in place and no significant fluid noted. TM are normal color/no redness or thickening) Nose: No: Nasal Deformity, Nasal Swelling, Nasal Drainage Throat/Mouth: Normal Lips, Normal Voice, No Airway Compromise, Other (several apthous ulcers noted right tip of tongue) Head: Atraumatic, Normocephalic. No: Facial Swelling, Facial Tenderness Neck: Supple, Full Range of Motion, Other (no significant adenopathy noted but patient complained of mild discomfort with palpation of pat area) Respiratory/Chest: No Respiratory Distress, No Accessory Muscle Use, Chest Non- Tender, Wheezing (faint/all saini) Cardiovascular: Normal Peripheral Pulses, Regular Rate, Rhythm, No Murmur GI/Abdominal: Soft, Non-Tender, No Distention, Abnormal Bowel Sounds (diminished all saini). No: Guarding, Rigid, Rebound, Tender (Female) Exam: Deferred Rectal (Female) Exam: Deferred Back Exam: No: CVA Tenderness (L), CVA Tenderness (R), Muscle Spasm Extremities: Normal Range of Motion, Normal Capillary Refill Neurological: Alert, Oriented, CN II-XII Intact, Normal Cognition, No Motor/Sensory Deficits Psychiatric: Anxious Skin Exam: Warm, Dry, Other (small area of redness with small central firmness noted left upper buttock area/mildly tender. ) Course - Vital Signs Last Recorded V/S: Last Vital Signs Temp 36.2 C 10/08/20 18:39 Pulse 50 L 10/08/20 23:17 Resp 18 10/08/20 23:17 BP 173/75 H 10/08/20 23:17 Pulse Ox 100 10/08/20 23:17 - Orders/Labs/Meds Orders: Active Orders 24 hr Category Date Time Status Abdomen Pelvis wo Cont [CT] Stat Exams 10/08/20 19:47 Taken Ang Chest [CT] Stat Exams 10/08/20 19:47 Taken Labs: Laboratory Tests 10/08/20 10/08/20 10/08/20 Range/Units 19:04 19:04 19:04 WBC 9.1 (4.0-10.2) K/uL RBC 3.81 (3.77-5.09) M/uL Hgb 13.6 (11.7-15.5) g/dL Hct 39.6 (34.0-46.0) % MCV 103.9 H (84.0-98.0) fL MCH 35.7 H (28.2-33.3) pg MCHC 34.3 (31.7-36.0) g/dL RDW 12.2 (11.2-14.1) % Plt Count 224 (150-350) K/uL Neut % (Auto) 65.3 (45.0-80.0) % Lymph % (Auto) 25.2 (10.0-50.0) % [place] % (Auto) 6.6 (2.0-14.0) % Eos % (Auto) 2.7 (0.0-5.0) % Baso % (Auto) 0.2 (0.0-2.0) % Neut # (Auto) 5.97 (1.40-7.00) K/uL Lymph # (Auto) 2.30 (0.50-3.50) K/uL [place] # (Auto) 0.60 (0.00-1.00) K/uL Eos # (Auto) 0.25 (0.00-0.50) K/uL Baso # (Auto) 0.02 (0.00-0.20) K/uL D-Dimer, Quantitative (0-400) ng/mL Sodium 135 L (136-145) mmol/L Potassium 4.4 (3.5-5.1) mmol/L Chloride 99 (98-107) mmol/L Carbon Dioxide 27.1 (21.0-32.0) mmol/L BUN 10 (7-18) mg/dL Creatinine 0.82 (0.51-1.17) mg/dL Est Cr Clr Drug Dosing 64.83 mL/min Estimated GFR (MDRD) > 60 mL/min Glucose 150 H (70-99) mg/dL Lactic Acid 0.9 (0.4-2.0) mmol/L Calcium 8.9 (8.5-10.1) mg/dL Magnesium 1.9 (1.8-2.4) mg/dL Total Bilirubin 0.4 (0.2-1.0) mg/dL AST 50 H (15-37) U/L ALT 53 (12-78) U/L Alkaline Phosphatase 105 (46-116) IU/L Troponin I 0.000 (0.000-0.056) ng/mL Total Protein 7.5 (6.4-8.2) g/dL Albumin 3.3 L (3.4-5.0) g/dL Specimen Type Urine Color (YELLOW) Urine Appearance (CLEAR) Urine pH (5.0-9.0) Ur Specific [place] (1.005-1.030) Urine Protein (NEGATIVE) mg/dL Urine Glucose (UA) (NEGATIVE) mg/dL Urine Ketones (NEGATIVE) mg/dL Urine Occult Blood (NEGATIVE) Urine Nitrite (NEGATIVE) Urine Bilirubin (NEGATIVE) Urine Urobilinogen (0.2-1.0) E.U./dL Ur Leukocyte Esterase (NEGATIVE) Urine RBC /HPF Urine WBC /HPF Ur Epithelial Cells /LPF Urine Bacteria (NONE TO FEW) /HPF Ethyl Alcohol 0.000 (0.000-0.080) g/dL 10/08/20 10/08/20 Range/Units 19:04 19:37 WBC (4.0-10.2) K/uL RBC (3.77-5.09) M/uL Hgb (11.7-15.5) g/dL Hct (34.0-46.0) % MCV (84.0-98.0) fL MCH (28.2-33.3) pg MCHC (31.7-36.0) g/dL RDW (11.2-14.1) % Plt Count (150-350) K/uL Neut % (Auto) (45.0-80.0) % Lymph % (Auto) (10.0-50.0) % [place] % (Auto) (2.0-14.0) % Eos % (Auto) (0.0-5.0) % Baso % (Auto) (0.0-2.0) % Neut # (Auto) (1.40-7.00) K/uL Lymph # (Auto) (0.50-3.50) K/uL [place] # (Auto) (0.00-1.00) K/uL Eos # (Auto) (0.00-0.50) K/uL Baso # (Auto) (0.00-0.20) K/uL D-Dimer, Quantitative 1270 H (0-400) ng/mL Sodium (136-145) mmol/L Potassium (3.5-5.1) mmol/L Chloride (98-107) mmol/L Carbon Dioxide (21.0-32.0) mmol/L BUN (7-18) mg/dL Creatinine (0.51-1.17) mg/dL Est Cr Clr Drug Dosing mL/min Estimated GFR (MDRD) mL/min Glucose (70-99) mg/dL Lactic Acid (0.4-2.0) mmol/L Calcium (8.5-10.1) mg/dL Magnesium (1.8-2.4) mg/dL Total Bilirubin (0.2-1.0) mg/dL AST (15-37) U/L ALT (12-78) U/L Alkaline Phosphatase (46-116) IU/L Troponin I (0.000-0.056) ng/mL Total Protein (6.4-8.2) g/dL Albumin (3.4-5.0) g/dL Specimen Type Urinblad Urine Color Gisele H (YELLOW) Urine Appearance Clear (CLEAR) Urine pH 6.0 (5.0-9.0) Ur Specific [place] 1.020 (1.005-1.030) Urine Protein Negative (NEGATIVE) mg/dL Urine Glucose (UA) Negative (NEGATIVE) mg/dL Urine Ketones Negative (NEGATIVE) mg/dL Urine Occult Blood Negative (NEGATIVE) Urine Nitrite Negative (NEGATIVE) Urine Bilirubin Negative (NEGATIVE) Urine Urobilinogen 0.2 (0.2-1.0) E.U./dL Ur Leukocyte Esterase Negative (NEGATIVE) Urine RBC 0-5 /HPF Urine WBC 0-5 /HPF Ur Epithelial Cells Occasional /LPF Urine Bacteria Not seen (NONE TO FEW) /HPF Ethyl Alcohol (0.000-0.080) g/dL Meds: Medications Discontinued Medications Generic Name Dose Route Start Last Admin Trade Name Madhavq PRN Reason Stop Dose Admin Diazepam 5 mg 10/08/20 22:30 10/08/20 22:42 Diazepam 5 Mg Tab PO 10/08/20 22:31 5 mg ONETIME ONE Administration Ceftriaxone Sodium 1 gm/ 100 mls @ 200 mls/hr 10/08/20 21:54 10/08/20 22:08 Sodium Chloride IV 10/08/20 22:23 200 mls/hr ONETIME ONE Administration Iopamidol 100 ml 10/08/20 20:11 10/08/20 20:39 Iopamidol 755 Mg/Ml 100 Ml Bottle IVPUSH 10/08/20 20:12 100 ml ONETIME STA Administration Lisinopril 10 mg 10/08/20 21:09 10/08/20 21:17 Lisinopril 10 Mg Tab PO 10/08/20 21:10 10 mg ONETIME ONE Administration Meclizine HCl 25 mg 10/08/20 22:20 10/08/20 22:42 Meclizine 25 Mg Tab PO 10/08/20 22:21 25 mg ONETIME ONE Administration Methylprednisolone Sodium Succinate 40 mg 10/08/20 22:30 10/08/20 22:42 Methylprednisolone Sodium Succinate 40 Mg/1 Ml Sdv IVPUSH 10/08/20 22:31 40 mg ONETIME ONE Administration Metoprolol Tartrate 50 mg 10/08/20 21:08 10/08/20 21:16 Metoprolol Tartrate 50 Mg Tab PO 10/08/20 21:09 50 mg ONETIME ONE Administration Metoprolol Tartrate 2.5 mg 10/08/20 22:37 10/08/20 23:29 Metoprolol Tartrate 5 Mg/5 Ml Sdv IVPUSH 10/08/20 22:38 Not Given ONETIME ONE Ondansetron HCl 4 mg 10/08/20 18:49 10/08/20 19:01 Ondansetron 4 Mg/2 Ml Sdv IVPUSH 10/08/20 18:50 4 mg ONETIME ONE Administration Promethazine HCl 25 mg 10/08/20 19:00 10/08/20 19:07 Promethazine 25 Mg/Ml Sdv IM 10/08/20 19:01 25 mg ONETIME ONE Administration Sodium Chloride 10 ml 10/08/20 18:45 10/08/20 19:03 Sodium Chloride 0.9% 10 Ml Syringe FLUSH 10 ml ASDIRECTED PRN Administration Keep Vein Open - Re-Assessments/Exams Free Text/Narrative Re-Assessment/Exam: Refer to records from recent ER visit and observation stay for information pertaining to earlier portion of current illness. Patient still felt to likely have vertigo related to URI/viral infection which led to bilateral ear infections. Head movement/rotation triggers vertigo episodes. Given that patient has been having no significant improvement since first ER evaluation it was felt appropriate to rule out other more serious potential causes for persistent vertigo/nausea/emesis. Head CT to rule out intracranial process performed. Some ethmoidal changes and fluid in mastoid area confirming bilat OM noted by radiology. No evidence of mastoiditis. Chest CT performed to rule out PE as PEs can be cause of dizziness/vertigo like complaints. Patient's INR clim bed even higher on tonight's labs when compared to previous DDimer from last week. No evidence of acute PE/other acute process noted by radiology. Plain CT of abdomen added given persistent nausea and vomiting that have been present since first evaluation and as noted, worsened this evening. No acute changes noted on that scan per Radiology. WBC and lactic acid normal. Unremarkable UA. Normal Troponin. Patient feeling improved since receiving Zofran and Phenergan. Single dose IV Rocephin given. Patient received three days of Rocephin during observation stay and none yesterday as she was home. This way she received Rocephin dosing that matched guidelines for treatment of Otitis Media that recommend single IM dose every other day for a total of three doses. Left TM appears to have spontaneously ruptured as there is now a scab in place on the TM. Right TM still has fluid Both TMs appear improved compared to exam two days ago. Continue to suspect that current otitis is more likely viral in nature vs bacterial based on history of exam. Continue to suspect that vertigo is related to current bilateral Otitis Media/inner ear infection. BP initially improved but then increased after we discussed CT scans to look for potential causes such as PE. Patient admitted to being anxious and felt that contributed to BP rise. It was also noted that in addition to taking pseudoephedrine she has also been taking Mucinex Sinus which has phenylephrine. Both of these can raise blood pressure. It is advised that she discontinue both of these and instead take plain Mucinex. She did receive small doses of her usual BP meds in the ER while awaiting CT results. 10/08/20 22:38 Plan at this time is to discharge patient home once BP improves. She is more comfortable and is watching TV at this time. Small dose Metoprolol IV given. Also received single PO dose Valium and single dose steroids with goal of improving vertigo complaints. No additional antibiotics at this time. Patient has follow up appointment in 3 days with PCP for recheck. Precautions reviewed. To go packs of Phenergan and Zofran given to assist with nausea. She may continue Meclizine. Departure - Departure Time of Disposition: 23:15 Disposition: Home, Self-Care 01 Condition: Good Clinical Impression: Vertigo Otitis media Qualifiers: Otitis media type: unspecified Chronicity: acute Qualified Code(s): H66.90 - Otitis media, unspecified, unspecified ear Nausea and vomiting Qualifiers: Vomiting type: unspecified Vomiting Intractability: non-intractable Qualified Code(s): R11.2 - Nausea with vomiting, unspecified Hypertension Qualifiers: Hypertension type: essential hypertension Qualified Code(s): I10 - Essential (primary) hypertension - Discharge Information *PRESCRIPTION DRUG MONITORING PROGRAM REVIEWED*: Not Applicable *COPY OF PRESCRIPTION DRUG MONITORING REPORT IN PATIENT KETTY: Not Applicable Referrals: Perla Kim NP [Primary Care Provider] - Forms: ED Department Discharge Additional Instructions: Take Meclizine regularly- 1 tab every 6 hours to help with dizziness, for the next 5-7 days. If you need more it is available as an over the counter medication. Take Phenergan or Zofran 1 tab every 6-8 hours to stay ahead of nausea. STOP taking Mucinex Sinus. It has an ingredient that will drive up your blood pressure. OK to take PLAIN Mucinex. STOP taking the Pseudoephedrine/Sudafed as it is also making your blood pressure go up too. Take it easy at home/stay hydrated. Follow up with your clinic as scheduled for recheck this week. Follow up otherwise as needed if you have sudden worsening problems. Cigarettes and alcohol are risk factors for vertigo--keep trying to stop! Sepsis Event Note (ED) - Evaluation Sepsis Screening Result: No Definite Risk - My Orders Last 24 Hours: My Active Orders 10/08/20 19:47 Abdomen Pelvis wo Cont [CT] Stat Ang Chest [CT] Stat - Assessment/Plan Last 24 Hours: My Active Orders 10/08/20 19:47 Abdomen Pelvis wo Cont [CT] Stat Ang Chest [CT] Stat
[2020-10-08] MEDS: Ondansetron 4 MG/2 ML SDV IVPUSH ONE (19:01)
[2020-10-08] MEDS: Sodium Chloride 0.9% 10 ML Syringe FLUSH PRN (19:03)
[2020-10-08] MEDS: Promethazine 25 MG/ML SDV IM ONE (19:07)
[2020-10-08 19:27] LABS: CHLORIDE,CL 99 mmol/L (98-107); SODIUM,NA 135 mmol/L (136-145)
[2020-10-08] MEDS: Iopamidol 755 Mg/ML 100 ML Bottle IVPUSH STA (20:39)
[2020-10-08] MEDS: Metoprolol Tartrate 50 MG Tab PO ONE (21:16)
[2020-10-08] MEDS: Lisinopril 10 MG Tab PO ONE (21:17)
[2020-10-08] MEDS: cefTRIAXone 1 GM in Sodium Chloride 0.9% 100 ML IV ONE (22:08)
[2020-10-08] MEDS: Diazepam 5 MG Tab PO ONE (22:42)
[2020-10-08] MEDS: Meclizine 25 MG Tab PO ONE (22:42)
[2020-10-08] MEDS: methylPREDNISolone Sodium Succinate 40 MG/1 ML SDV IVPUSH ONE (22:42)
[2020-10-08] MEDS: Metoprolol Tartrate 5 MG/5 ML SDV IVPUSH ONE (23:29)
== END 2020-10-08 23:30 | disposition home or self-care (01) ==
LOC: LL.ED 18:36
DX: R42 Dizziness and giddiness (principal); R11.2 Nausea with vomiting, unspecified; H66.93 Otitis media, unspecified, bilateral; I25.10 Atherosclerotic heart disease of native coronary artery without angina pectoris; I10 Essential (primary) hypertension; J44.9 Chronic obstructive pulmonary disease, unspecified; E11.9 Type 2 diabetes mellitus without complications; E03.9 Hypothyroidism, unspecified; Z88.0 Allergy status to penicillin; Z79.82 Long term (current) use of aspirin; Z79.899 Other long term (current) drug therapy
CPT/HCPCS: 36415; 70450; 71275; 74022; 74176; 80053; 80307; 81001; 83605; 83735; 84484; 85025; 85379; 96365; 96372; 96375; 99284; 99284-25; A9270-GY; J0696; J2405; J2550; J2920; Q9967

== ENCOUNTER 2022-09-25 09:48 | Day surgery (SDC) | payer BC ==
[~2022-09-25 09:48] MED LIST changes: +Lactated Ringers 1,000 ML IV SCH; +Midazolam 1 MG/ML 2 ML SDV ONE; +Propofol 200 MG/20 ML SDV ONE; +Sodium Chloride 0.9% 10 ML Syringe FLUSH PRN; -Temazepam 15 MG Cap PO PRN
[2022-09-25] MEDS ORDERED: Ondansetron 4 MG/2 ML SDV IVPUSH ONE (10:30)
[2022-09-25] MEDS ORDERED: Ketorolac 30 MG/ML SDV IVPUSH ONE (10:30)
== END 2022-09-25 14:20 | disposition home or self-care (01) ==
LOC: LL.SDS 09:48
PROVIDERS: ATTEND Surgery
DX: K63.89 Other specified diseases of intestine (principal); Z53.09 Procedure and treatment not carried out because of other contraindication; Q43.8 Other specified congenital malformations of intestine; E11.9 Type 2 diabetes mellitus without complications; J41.0 Simple chronic bronchitis; K21.9 Gastro-esophageal reflux disease without esophagitis; I10 Essential (primary) hypertension; E07.9 Disorder of thyroid, unspecified; Z79.82 Long term (current) use of aspirin; Z79.890 Hormone replacement therapy; Z79.899 Other long term (current) drug therapy; Z88.1 Allergy status to other antibiotic agents
CPT/HCPCS: 00812; J1885; J2250; J2405; J2704; J7120